=== PATIENT | female | born 1945 | race American Indian/Alaskan Native ===

== ENCOUNTER 2020-01-12 23:52 | Inpatient (IN) | payer MEDICAID, MEDICARE ==
[2020-01-13] MEDS ORDERED: NITROGLYCERIN 2% OINT 1 GM TP ONE (00:05)
[2020-01-13 00:32] LABS: Basophils % (Auto) 0.7 % (0.0-1.8); Eosinophils # (Auto) 0.2 K/mm3 (0.0-0.4); Eosinophils % (Auto) 2.6 % (0.0-4.3); Hematocrit 32.3 % (30.3-42.9); Hemoglobin 10.2 gm/dl (10.1-14.3); Lymphocytes # (Auto) 1.4 K/mm3 (1.2-5.4); Lymphocytes % (Auto) 23.1 % (13.4-35.0); Mean Corpuscular HGB Conc 32 % (30-34); Mean Corpuscular Volume 89 fl (79-97); Monocytes # (Auto) 0.5 K/mm3 (0.0-0.8); Monocytes % (Auto) 8.5 % (0.0-7.3); Platelet Count 245 K/mm3 (140-440); Red Blood Count 3.62 M/mm3 (3.65-5.03); Red Cell Distribution Width 20.3 % (13.2-15.2)
[2020-01-13 00:41] LABS: INR 1.45 (0.87-1.13)
[2020-01-13 00:42] LABS: Partial Thromboplastin Time 32.8 Sec. (24.2-36.6)
[2020-01-13 00:55] LABS: BUN/Creatinine Ratio 29; Blood Urea Nitrogen 40 mg/dL (7-17); Calcium 9.7 mg/dL (8.4-10.2); Hemolysis Index 4
--- NOTE | 2020-01-13 01:42 | Emergency Department Report ---
ED Shortness of Breath HPI - General Chief Complaint: Dyspnea/Respdistress Stated Complaint: SOB Time Seen by Provider: 01/13/20 00:04 Source: EMS Mode of arrival: Stretcher Limitations: No Limitations - History of Present Illness Initial Comments: Patient is a 74-year-old F [place] female with past medical history of congestive heart failure hypertension who is presenting with shortness of breath for the last 3 days. Patient does take Lasix at home. Patient was in respiratory distress and was placed on CPAP before arrival. She was given 40 mg of Lasix. She has a past medical history also of diabetes and hypertension. Patient denies fevers chills sore throat but has had a cough which is nonproductive and dry. Patient is denying any chest pain at this time. - Related Data Home Medications Medication Instructions Recorded Confirmed Last Taken Furosemide [Lasix TAB] 20 mg PO BID 03/03/18 03/04/18 03/03/18 Insulin NPH Hum/Reg Insulin Hm 20 units SUB-Q QPM 03/03/18 03/03/18 Unknown [Novolin 70-30 100 Unit/ml Vial] Insulin NPH Hum/Reg Insulin Hm 30 units SQ QAM 03/03/18 03/03/18 Unknown [Novolin 70-30 100 Unit/ml Vial] Klor-Con M20 1 tab PO BID 03/03/18 03/03/18 Unknown Metoprolol [Lopressor TAB] 100 mg PO BID 03/03/18 03/04/18 03/03/18 Valsartan [Diovan] 320 mg PO DAILY 03/03/18 03/04/18 03/03/18 Previous Rx's Medication Instructions Recorded Last Taken Type Apixaban [Eliquis] 5 mg PO BID #60 tablet 03/16/15 03/03/18 Rx Pantoprazole [Protonix TAB] 40 mg PO QDAY #14 tablet 03/05/18 Unknown Rx Allergies Allergy/AdvReac Type Severity Reaction Status Date / Time metformin Allergy Diarrhea Verified 03/03/18 15:10 codeine AdvReac Unknown Verified 03/13/15 23:27 ED Review of Systems ROS: Stated complaint: SOB Other details as noted in HPI Comment: All other systems reviewed and negative ED Past Medical Hx - Past Medical History Hx Hypertension: Yes Hx CVA: Yes (TIA) Hx Congestive Heart Failure: Yes Hx Diabetes: Yes Hx Seizures: Yes - Surgical History Additional Surgical History: 100 lb cyst removed-2005 - Social History Smoking Status: Unknown if ever smoked - Medications Home Medications: Home Medications Medication Instructions Recorded Confirmed Last Taken Type Apixaban [Eliquis] 5 mg PO BID #60 tablet 03/16/15 03/04/18 03/03/18 Rx Furosemide [Lasix TAB] 20 mg PO BID 03/03/18 03/04/18 03/03/18 History Insulin NPH Hum/Reg Insulin Hm 20 units SUB-Q QPM 03/03/18 03/03/18 Unknown History [Novolin 70-30 100 Unit/ml Vial] Insulin NPH Hum/Reg Insulin Hm 30 units SQ QAM 03/03/18 03/03/18 Unknown History [Novolin 70-30 100 Unit/ml Vial] Klor-Con M20 1 tab PO BID 03/03/18 03/03/18 Unknown History Metoprolol [Lopressor TAB] 100 mg PO BID 03/03/18 03/04/18 03/03/18 History Valsartan [Diovan] 320 mg PO DAILY 03/03/18 03/04/18 03/03/18 History Pantoprazole [Protonix TAB] 40 mg PO QDAY #14 tablet 03/05/18 Unknown Rx ED Physical Exam - General Limitations: No Limitations General appearance: alert, in distress - Head Head exam: Present: atraumatic, normocephalic - Eye Eye exam: Present: normal appearance - ENT ENT exam: Present: mucous membranes moist - Neck Neck exam: Present: normal inspection - Respiratory Respiratory exam: Present: respiratory distress, rales, rhonchi. Absent: normal lung sounds bilaterally, wheezes, stridor - Cardiovascular Cardiovascular Exam: Present: regular rate, normal rhythm, normal heart sounds. Absent: systolic murmur, diastolic murmur, rubs, gallop - GI/Abdominal GI/Abdominal exam: Present: soft, normal bowel sounds. Absent: distended, tenderness, guarding, rebound - Extremities Exam Extremities exam: Present: normal inspection - Back Exam Back exam: Present: normal inspection - Neurological Exam Neurological exam: Present: alert, oriented X3 - Psychiatric Psychiatric exam: Present: normal affect, normal mood - Skin Skin exam: Present: warm, dry, intact, normal color. Absent: rash ED Course Vital Signs 01/13/20 01/13/20 01/13/20 00:11 00:15 00:18 Temperature Pulse Rate 65 58 L Respiratory 15 35 H Rate Blood Pressure 150/81 150/71 O2 Sat by Pulse 95 100 100 Oximetry 01/13/20 01/13/20 01/13/20 00:19 00:31 00:45 Temperature 97.8 F Pulse Rate 65 56 L Respiratory 22 25 H Rate Blood Pressure 150/71 157/76 O2 Sat by Pulse 99 99 Oximetry 01/13/20 01/13/20 01/13/20 01:01 01:06 01:15 Temperature Pulse Rate 55 L 57 L Respiratory 32 H 20 27 H Rate Blood Pressure 174/91 166/85 O2 Sat by Pulse 99 100 Oximetry 01/13/20 01/13/20 01:31 01:45 Temperature Pulse Rate 56 L 54 L Respiratory 32 H 29 H Rate Blood Pressure 174/87 174/91 O2 Sat by Pulse 99 100 Oximetry ED Medical Decision Making - Lab Data Result diagrams: 01/13/20 00:13 01/13/20 00:13 Lab Results 01/13/20 01/13/20 01/13/20 Range/Units 00:13 00:13 00:13 WBC 6.2 (4.5-11.0) K/mm3 RBC 3.62 L (3.65-5.03) M/mm3 Hgb 10.2 (10.1-14.3) gm/dl Hct 32.3 (30.3-42.9) % MCV 89 (79-97) fl MCH 28 (28-32) pg MCHC 32 (30-34) % RDW 20.3 H (13.2-15.2) % Plt Count 245 (140-440) K/mm3 Lymph % (Auto) 23.1 (13.4-35.0) % [place] % (Auto) 8.5 H (0.0-7.3) % Eos % (Auto) 2.6 (0.0-4.3) % Baso % (Auto) 0.7 (0.0-1.8) % Lymph # (Auto) 1.4 (1.2-5.4) K/mm3 [place] # (Auto) 0.5 (0.0-0.8) K/mm3 Eos # (Auto) 0.2 (0.0-0.4) K/mm3 Baso # (Auto) 0.0 (0.0-0.1) K/mm3 Seg Neutrophils % 65.1 (40.0-70.0) % Seg Neutrophils # 4.0 (1.8-7.7) K/mm3 PT 17.8 H (12.2-14.9) Sec. INR 1.45 H (0.87-1.13) APTT 32.8 (24.2-36.6) Sec. Sodium 130 L (137-145) mmol/L Potassium 4.0 (3.6-5.0) mmol/L Chloride 93.0 L (98-107) mmol/L Carbon Dioxide 21 L (22-30) mmol/L Anion Gap 20 mmol/L BUN 40 H (7-17) mg/dL Creatinine 1.4 H (0.6-1.2) mg/dL Estimated GFR 44 ml/min BUN/Creatinine Ratio 29 % Glucose 175 H (65-100) mg/dL Calcium 9.7 (8.4-10.2) mg/dL Troponin T < 0.010 (0.00-0.029) ng/mL NT-Pro-B Natriuret Pep 1899 H (0-900) pg/mL - EKG Data -: EKG Interpreted by Mn - Radiology Data Chest x-ray shows cardiomegaly with pulmonary vascular congestion and pulmonary edema - Medical Decision Making Patient is improving dramatically on BiPAP. She received 40 Lasix prior to arrival. She is starting to diurese. Patient will be admitted to the hospitalist service. Critical Care Time: Yes (30) Critical care attestation.: If time is entered above; I have spent that time in minutes in the direct care of this critically ill patient, excluding procedure time. ED Disposition Clinical Impression: CHF (congestive heart failure), Hypertension, SOB (shortness of breath) Disposition: OP ADMIT IP TO THIS HOSP Is pt being admited?: Yes Does the pt Need Aspirin: No Condition: Stable Instructions: Hypertension (ED) Referrals: PRIMARY CARE, [Primary Care Provider] - 3-5 Days Time of Disposition: 02:05
--- NOTE | 2020-01-13 01:49 | XRay Report ---
CHEST 1 VIEW INDICATION: resp distress. COMPARISON: 03/03/2018. FINDINGS: Support devices: None. Heart: Mildly enlarged, unchanged. Lungs/Pleura: There are small effusions with mild bibasilar opacities. IMPRESSION: 1. Cardiomegaly with mild bibasilar pleuroparenchymal disease. Signer Name: Mike Guillen MD Signed: 01/13/2020 1:44 AM Workstation Name: [id number]
[2020-01-13] MEDS ORDERED: MAGNESIUM HYDROXIDE (MOM) ORAL LIQD UDC PO PRN (02:23)
[2020-01-13] MEDS ORDERED: DEXTROSE 50% IN WATER (25GM) 50 ML SYRINGE IV PRN (02:23)
--- NOTE | 2020-01-13 02:40 | History and Physical Report ---
History of Present Illness Date of examination: 01/13/20 Date of admission: 01/13/20 02:05 Chief complaint: Shortness of Breath History of present illness: 74-year-old female with known history of CHF ejection fraction of 50 to 55% in 2015, hypertension, diabetes mellitus, history of CVA, and seizure disorder presented to the emergency room today complaining of shortness of breath which has been ongoing for the past 3 days. She denies any fever or chills, no nausea vomiting, no chest pain, she had some mild cough which is nonproductive, no headache or dizziness. Patient was brought in by EMS and en route to the hospital was found to be in respiratory distress and therefore placed on CPAP. She was given some IV furosemide. Work-up in the emergency room reveals elevated BNP, chest x-ray was consistent with pulmonary edema. Patient was still in respiratory distress and therefore placed on BiPAP. She has been admitted for evaluation of her CHF. Past History Past Medical History: diabetes, heart failure, hypertension, seizures, stroke Past Surgical History: Other (Cyst removal in 2005) Social history: no significant social history Family history: no significant family history Medications and Allergies Allergies Allergy/AdvReac Type Severity Reaction Status Date / Time metformin Allergy Diarrhea Verified 03/03/18 15:10 codeine AdvReac Unknown Verified 03/13/15 23:27 Home Medications Medication Instructions Recorded Confirmed Last Taken Type Apixaban [Eliquis] 5 mg PO BID #60 tablet 03/16/15 03/04/18 03/03/18 Rx Furosemide [Lasix TAB] 20 mg PO BID 03/03/18 03/04/18 03/03/18 History Insulin NPH Hum/Reg Insulin Hm 20 units SUB-Q QPM 03/03/18 03/03/18 Unknown History [Novolin 70-30 100 Unit/ml Vial] Insulin NPH Hum/Reg Insulin Hm 30 units SQ QAM 03/03/18 03/03/18 Unknown History [Novolin 70-30 100 Unit/ml Vial] Klor-Con M20 1 tab PO BID 03/03/18 03/03/18 Unknown History Metoprolol [Lopressor TAB] 100 mg PO BID 03/03/18 03/04/18 03/03/18 History Valsartan [Diovan] 320 mg PO DAILY 03/03/18 03/04/18 03/03/18 History Pantoprazole [Protonix TAB] 40 mg PO QDAY #14 tablet 03/05/18 Unknown Rx Active Meds: Active Medications Acetaminophen (Tylenol) 650 mg PO Q6H PRN PRN Reason: Pain MILD(1-3)/Fever >100.5/SUNG Dextrose (D50w (25gm) Syringe) 50 ml IV Q30MIN PRN; Protocol PRN Reason: Hypoglycemia Furosemide (Lasix) 40 mg IV BID@0600,1800 SHERRON Insulin Human Lispro (Humalog) 0 unit SUB-Q ACHS SHERRON; Protocol Magnesium Hydroxide (Milk Of Magnesia) 30 ml PO Q4H PRN PRN Reason: Constipation Sodium Chloride (Sodium Chloride Flush Syringe 10 Ml) 10 ml IV BID SHERRON Sodium Chloride (Sodium Chloride Flush Syringe 10 Ml) 10 ml IV PRN PRN PRN Reason: LINE FLUSH Review of Systems Constitutional: no fever, no chills Ears, nose, mouth and throat: no nasal congestion, no sore throat Cardiovascular: no chest pain, no palpitations Respiratory: shortness of breath, no cough Gastrointestinal: no abdominal pain, no nausea, no vomiting, no diarrhea Genitourinary Female: no pelvic pain, no flank pain, no dysuria Musculoskeletal: no neck pain, no low back pain Integumentary: no rash, no pruritis Neurological: no headaches, no confusion Psychiatric: no anxiety, no depression Exam - Constitutional Vitals: Temp Pulse Resp BP Pulse Ox 97.8 F 54 L 29 H 174/91 100 01/13/20 00:19 01/13/20 01:45 01/13/20 01:45 01/13/20 01:45 01/13/20 01:45 General appearance: Present: no acute distress, mild distress, well-nourished - EENT Eyes: Present: PERRL, EOM intact. Absent: scleral icterus ENT: hearing intact, clear oral mucosa, dentition normal - Neck Neck: Present: supple, normal ROM - Respiratory Respiratory effort: normal Respiratory: bilateral: rales - Cardiovascular Rhythm: regular Heart Sounds: Present: S1 & S2. Absent: systolic murmur, diastolic murmur, rub - Extremities Extremities: no ischemia, pulses intact, Full ROM Extremity abnormal: edema (Trace bilateral ankle edema) Peripheral Pulses: within normal limits - Abdominal General gastrointestinal: Present: soft, non-tender, non-distended, normal bowel sounds. Absent: mass - Integumentary Integumentary: Present: clear, warm, dry. Absent: rash - Musculoskeletal Musculoskeletal: strength equal bilaterally - Psychiatric Psychiatric: appropriate mood/affect, intact judgment & insight, memory intact, cooperative - Neurologic Neurologic: CNII-XII intact, no focal deficits, moves all extremities HEART Score - HEART Score Troponin: Troponin T < 0.010 ng/mL (0.00-0.029) 01/13/20 00:13 Results - Labs CBC & Chem 7: 01/13/20 00:13 01/13/20 00:13 Labs: Abnormal lab results 01/13/20 01/13/20 01/13/20 Range/Units 00:13 00:13 00:13 RBC 3.62 L (3.65-5.03) M/mm3 RDW 20.3 H (13.2-15.2) % [place] % (Auto) 8.5 H (0.0-7.3) % PT 17.8 H (12.2-14.9) Sec. INR 1.45 H (0.87-1.13) Sodium 130 L (137-145) mmol/L Chloride 93.0 L (98-107) mmol/L Carbon Dioxide 21 L (22-30) mmol/L BUN 40 H (7-17) mg/dL Creatinine 1.4 H (0.6-1.2) mg/dL Glucose 175 H (65-100) mg/dL NT-Pro-B Natriuret Pep 1899 H (0-900) pg/mL Assessment and Plan - Patient Problems (1) CHF (congestive heart failure) Current Visit: Yes Status: Chronic Qualifiers: Plan to address problem: Patient admitted and placed on diuretics. Will monitor inputs and output and also monitor daily weight We will schedule patient for echocardiogram. (2) Diabetes mellitus Current Visit: Yes Status: Acute Plan to address problem: We will monitor Accu-Cheks. (3) DVT prophylaxis Current Visit: No Status: Acute Plan to address problem: Patient placed on subcutaneous heparin. (4) Full code status Current Visit: Yes Status: Acute
[2020-01-13] MEDS ORDERED: FUROSEMIDE 40 MG/4 ML INJ ONE (09:39)
[2020-01-13] MEDS: FUROSEMIDE 40 MG/4 ML INJ IV SCH ×2 (09:48→17:56)
--- NOTE | 2020-01-13 10:05 | Event Note ---
Date: 01/13/20 Patient was admitted earlier this morning for the management of CHF exacerbation. Patient states shortness of breath is getting better. Cardiology consult appreciated. Continue management as outlined in HPI. Vital signs, labs and imagings were reviewed.
[2020-01-13] MEDS: INSULIN LISPRO 100 UNIT/ML VIAL 3 mL SUB-Q SCH ×4 (11:25→22:47)
[2020-01-13] MEDS ORDERED: ACETAMINOPHEN 325 MG TAB ONE (14:28)
[2020-01-13] MEDS: ACETAMINOPHEN 325 MG TAB PO PRN (14:32)
--- NOTE | 2020-01-13 14:44 | Consultation ---
HISTORY OF PRESENT ILLNESS: The patient is a 74-year-old female with a past history of congestive heart failure and hypertension, who presented with shortness of breath of 3 days' duration. The patient is a very poor historian. She states compliance with medicines. She states her blood pressure has been okay. She does not monitor her weight. She states that her daughter knows the details. Her ejection fraction has been preserved in the past. She also has diabetes, history of stroke, history of seizures. Chest x-ray was felt to be consistent with congestive heart failure. ALLERGIES: METFORMIN AND CODEINE. MEDICATIONS: See the nurse's list. SOCIAL HISTORY: Smoking: None. Alcohol: No heavy use. FAMILY HISTORY: Noncontributory. PREVIOUS SURGERIES: Cyst removal. REVIEW OF SYSTEMS: She gives a vague description of chest pain to me, although the medical record does not describe any chest pain. She is disoriented. She did not have any other complaints or medical problems. PHYSICAL EXAMINATION: GENERAL: Well-developed, moderately obese, in mild respiratory distress. The patient is confused, but cooperative. EYES, NOSE, AND THROAT: Unremarkable. NECK: Reveals JVD. There are no bruits. Neck is supple, no masses. LUNGS: Mild rhonchi, mildly labored respirations. HEART: Irregular rhythm, grade 3 systolic murmur. ABDOMEN: Soft, nontender, no masses. Bowel sounds intact. EXTREMITIES: No cyanosis, clubbing, edema. Peripheral pulses are intact, but diminished. NEUROLOGIC: Deferred. IMAGING: EKG shows atrial fibrillation, bradycardia with a heart rate of 50, nonspecific ST-T changes. IMPRESSION: 1. Recurrence of diastolic congestive heart failure. 2. Hypertension that is not under control at this time. 3. Obesity. 4. Diabetes. 5. History of stroke with disorientation. 6. Systolic murmur, consider underlying mitral regurgitation. 7. Chronic kidney disease. 8. Hyponatremia. 9. Evidence of PAD on exam. 10. Atrial fibrillation. PLAN: Treat for congestive heart failure and hypertension. Check previous workup. Echo to reevaluate LV function and valve status. Thank you for this consultation. We will follow the patient. JOB# [id number] JDS/NTS
[2020-01-14 05:18] LABS: Basophils % (Auto) 0.7 % (0.0-1.8); Eosinophils # (Auto) 0.1 K/mm3 (0.0-0.4); Eosinophils % (Auto) 2.1 % (0.0-4.3); Hematocrit 30.7 % (30.3-42.9); Hemoglobin 9.7 gm/dl (10.1-14.3); Lymphocytes # (Auto) 1.1 K/mm3 (1.2-5.4); Mean Corpuscular HGB Conc 32 % (30-34); Mean Corpuscular Volume 90 fl (79-97); Monocytes # (Auto) 0.7 K/mm3 (0.0-0.8); Monocytes % (Auto) 12.5 % (0.0-7.3); Platelet Count 235 K/mm3 (140-440); Red Blood Count 3.43 M/mm3 (3.65-5.03)
[2020-01-14 05:27] LABS: INR 1.44 (0.87-1.13)
[2020-01-14 05:34] LABS: Red Cell Distribution Width 20.1 % (13.2-15.2)
[2020-01-14 05:36] LABS: Calcium 9.8 mg/dL (8.4-10.2)
[2020-01-14] MEDS: FUROSEMIDE 40 MG/4 ML INJ IV SCH ×2 (05:37→17:02)
[2020-01-14] MEDS: INSULIN LISPRO 100 UNIT/ML VIAL 3 mL SUB-Q SCH ×4 (11:39→22:50)
--- NOTE | 2020-01-14 12:48 | Progress Note ---
Assessment and Plan - Patient Problems (1) CHF (congestive heart failure) Current Visit: Yes Status: Chronic Qualifiers: (2) Hypertension Current Visit: Yes Status: Chronic Qualifiers: (3) CHF (congestive heart failure) Current Visit: No Status: Acute Qualifiers: Heart failure type: unspecified Heart failure chronicity: chronic Qualified Code(s): I50.9 - Heart failure, unspecified Subjective Date of service: 01/14/20 Interval history: FEELS BETTER Objective Vital Signs Temp Pulse Resp BP Pulse Ox 01/14/20 11:56 98.4 F 68 20 114/63 98 01/14/20 09:33 96 01/14/20 08:41 98.5 F 76 20 140/70 94 01/14/20 04:01 97.6 F 57 L 20 102/56 100 01/14/20 02:48 28 H 98 01/14/20 00:43 24 97 01/14/20 00:02 97.5 F L 69 22 135/46 99 01/13/20 23:19 97 01/13/20 22:00 67 01/13/20 21:43 97.5 F L 66 26 H 160/83 100 01/13/20 21:01 67 27 H 165/75 100 01/13/20 20:51 67 22 165/75 100 01/13/20 20:41 68 26 H 165/75 99 01/13/20 20:33 67 19 165/75 96 01/13/20 20:31 64 28 H 165/75 96 01/13/20 20:01 65 29 H 165/75 96 01/13/20 19:31 72 14 165/75 96 01/13/20 19:01 66 21 138/60 93 01/13/20 18:31 71 16 138/60 93 01/13/20 18:01 71 28 H 138/60 95 01/13/20 17:31 69 20 122/78 96 01/13/20 17:00 73 28 H 126/81 95 01/13/20 16:31 71 18 122/78 96 01/13/20 16:01 69 15 122/78 95 01/13/20 15:32 22 01/13/20 15:31 62 17 155/101 97 01/13/20 15:01 73 26 H 129/53 96 01/13/20 14:32 16 01/13/20 14:31 71 21 129/53 96 01/13/20 14:01 72 33 H 129/53 94 01/13/20 13:31 62 27 H 152/132 94 01/13/20 13:01 69 11 L 126/54 - Physical Examination General: No Apparent Distress HEENT: Positive: PERRL Neck: Positive: neck supple Cardiac: Positive: Regular Rhythm Lungs: Positive: clear to auscultation Abdomen: Positive: Unremarkable Extremities: Present: edema (NO,,,,DIM PULSES) - Labs and Meds Coagulation 01/14/20 Range/Units 04:45 PT 17.7 H (12.2-14.9) Sec. INR 1.44 H (0.87-1.13) CBC 01/14/20 Range/Units 04:45 WBC 6.0 (4.5-11.0) K/mm3 RBC 3.43 L (3.65-5.03) M/mm3 Hgb 9.7 L (10.1-14.3) gm/dl Hct 30.7 (30.3-42.9) % Plt Count 235 (140-440) K/mm3 Lymph # (Auto) 1.1 L (1.2-5.4) K/mm3 [place] # (Auto) 0.7 (0.0-0.8) K/mm3 Eos # (Auto) 0.1 (0.0-0.4) K/mm3 Baso # (Auto) 0.0 (0.0-0.1) K/mm3 Comprehensive Metabolic Panel 01/14/20 Range/Units 04:45 Sodium 132 L (137-145) mmol/L Potassium 4.0 (3.6-5.0) mmol/L Chloride 95.3 L (98-107) mmol/L Carbon Dioxide 27 (22-30) mmol/L BUN 42 H (7-17) mg/dL Creatinine 1.3 H (0.6-1.2) mg/dL Glucose 106 H (65-100) mg/dL Calcium 9.8 (8.4-10.2) mg/dL
--- NOTE | 2020-01-14 14:39 | Progress Note ---
Assessment and Plan - Patient Problems (1) Seizure disorder Current Visit: Yes Status: Acute Plan to address problem: At present no active seizure continue present medical management. (2) Diabetes mellitus Current Visit: Yes Status: Acute Plan to address problem: At present fair control patient is not on any medications blood sugars have been normal to low. Would not add any hypoglycemics and to blood sugars titrate up. (3) CHF (congestive heart failure) Current Visit: Yes Status: Chronic Qualifiers: Plan to address problem: Patient CHF exacerbation. Ejection fraction 55%. Patient has had significant improvement since hospital stay. Breathing better continue current diuresis. (4) Hypertension Current Visit: Yes Status: Chronic Qualifiers: Plan to address problem: At present blood pressure normal to low without any medications. Will titrate a ccordingly. Reintroduce beta-tariq. Will avoid GUY secondary to chronic kidney disease stage IV. Subjective Date of service: 01/14/20 Principal diagnosis: Congestive heart failure exacerbation. Interval history: 74-year-old female with known history of CHF ejection fraction of 50 to 55% in 2015, hypertension, diabetes mellitus, history of CVA, and seizure disorder presented to the emergency room today complaining of shortness of breath which has been ongoing for the past 3 days. She denies any fever or chills, no nausea vomiting, no chest pain, she had some mild cough which is nonproductive, no headache or dizziness. Patient today states she just does not feel good. She thinks it may be secondary to her shortness of breath and fatigue. States she is able to sit up side of the bed and lay flat sometimes since receiving diuresis.. She said that that is better for her. Objective - Constitutional Vitals: Vital Signs - 12hr 01/14/20 01/14/20 01/14/20 02:48 04:01 08:41 Temperature 97.6 F 98.5 F Pulse Rate 57 L 76 Respiratory 28 H 20 20 Rate Blood Pressure 102/56 140/70 O2 Sat by Pulse 98 100 94 Oximetry 01/14/20 01/14/20 09:33 11:56 Temperature 98.4 F Pulse Rate 68 Respiratory 20 Rate Blood Pressure 114/63 O2 Sat by Pulse 96 98 Oximetry General appearance: Present: mild distress - EENT Eyes: PERRL, EOM intact ENT: hearing intact, clear oral mucosa - Neck Neck: supple, normal ROM - Respiratory Respiratory: bilateral: diminished, rales, negative: wheezing (Diffuse.) - Breasts Breasts: normal - Cardiovascular Heart Sounds: Present: S1 & S2. Absent: gallop, rub Extremities: pulses intact, No edema, normal color, Full ROM - Gastrointestinal General gastrointestinal: Present: soft, non-tender, non-distended, normal bowel sounds - Musculoskeletal Musculoskeletal: 1, strength equal bilaterally - Neurologic Neurologic: moves all extremities - Psychiatric Psychiatric: memory intact, appropriate mood/affect, intact judgment & insight - Labs CBC & Chem 7: 01/14/20 04:45 01/14/20 04:45 Labs: Abnormal lab results 01/14/20 01/14/20 01/14/20 Range/Units 04:45 04:45 04:45 RBC 3.43 L (3.65-5.03) M/mm3 Hgb 9.7 L (10.1-14.3) gm/dl RDW 20.1 H (13.2-15.2) % [place] % (Auto) 12.5 H (0.0-7.3) % Lymph # (Auto) 1.1 L (1.2-5.4) K/mm3 PT 17.7 H (12.2-14.9) Sec. INR 1.44 H (0.87-1.13) Sodium 132 L (137-145) mmol/L Chloride 95.3 L (98-107) mmol/L BUN 42 H (7-17) mg/dL Creatinine 1.3 H (0.6-1.2) mg/dL Glucose 106 H (65-100) mg/dL POC Glucose (70-105) 01/14/20 01/14/20 Range/Units 11:11 11:47 RBC (3.65-5.03) M/mm3 Hgb (10.1-14.3) gm/dl RDW (13.2-15.2) % [place] % (Auto) (0.0-7.3) % Lymph # (Auto) (1.2-5.4) K/mm3 PT (12.2-14.9) Sec. INR (0.87-1.13) Sodium (137-145) mmol/L Chloride (98-107) mmol/L BUN (7-17) mg/dL Creatinine (0.6-1.2) mg/dL Glucose (65-100) mg/dL POC Glucose 170 H 158 H (70-105) HEART Score - HEART Score Troponin: Troponin T < 0.010 ng/mL (0.00-0.029) 01/13/20 03:38
[2020-01-14] MEDS: ACETAMINOPHEN 325 MG TAB PO PRN (15:22)
[2020-01-14] MEDS: SIMETHICONE 80 MG CHEW TAB PO PRN (15:34)
[2020-01-14] MEDS ORDERED: METOPROLOL TARTRATE 25 MG TAB PO ONE (16:09)
[2020-01-15] MEDS: FUROSEMIDE 40 MG/4 ML INJ IV SCH ×2 (06:42→17:11)
[2020-01-15] MEDS: INSULIN LISPRO 100 UNIT/ML VIAL 3 mL SUB-Q SCH ×4 (09:19→22:50)
--- NOTE | 2020-01-15 10:25 | Progress Note ---
Assessment and Plan Diastolic heart failure normal EF and no ischemia by MPI 02/2018 Chronic shortness of breath Chronic atrial fibrillation, rate control Metoprolol 100mg BID held due to slow ventricular rate on Eliquis for anticoagulation as an outpatient Diabetes Hypertension Recommendations: Fluid restriction. Continue medical therapy for heart failure with a preserved ejection fraction. Resume anticoagulation for CVA prophylaxis. Subjective Date of service: 01/15/20 Principal diagnosis: Congestive heart failure exacerbation. Interval history: Patient is sitting up in bed and reports her breathing is better. Atrial fibrillation with a well controlled ventricular rate on telemetry. Objective Vital Signs Temp Pulse Pulse Pulse Resp BP Pulse Ox 01/15/20 09:01 96 01/15/20 07:35 98.3 F 85 20 134/81 96 01/15/20 07:00 84 84 18 97 01/15/20 05:23 97.8 F 80 20 125/49 99 01/14/20 22:00 59 L 01/14/20 21:00 68 01/14/20 20:12 96 01/14/20 19:31 97.8 F 68 20 149/68 97 01/14/20 19:00 68 68 18 97 01/14/20 16:55 68 163/80 01/14/20 15:49 163/80 01/14/20 11:56 98.4 F 68 20 114/63 98 01/14/20 11:30 85 - Physical Examination General: No Apparent Distress HEENT: Positive: PERRL Neck: Positive: neck supple Cardiac: Positive: irregularly irregular Lungs: Positive: Decreased Breath Sounds Neuro: Positive: Grossly Intact Extremities: Absent: edema
[2020-01-15] MEDS: APIXABAN 5 MG TAB PO SCH ×2 (13:14→22:50)
[2020-01-15] MEDS: SIMETHICONE 80 MG CHEW TAB PO PRN ×2 (16:26→22:50)
--- NOTE | 2020-01-15 17:13 | Progress Note ---
Assessment and Plan - Patient Problems (1) Seizure disorder Current Visit: Yes Status: Acute Plan to address problem: No present seizure activities. No medications noted.. (2) Diabetes mellitus Current Visit: Yes Status: Acute Plan to address problem: At present fair control patient is not on any medications blood sugars have been normal to low. Would not add any hypoglycemics and to blood sugars titrate up. Blood sugars remain stable. (3) CHF (congestive heart failure) Current Visit: Yes Status: Chronic Qualifiers: Plan to address problem: Patient CHF exacerbation. Ejection fraction 55%. Patient has had significant improvement since hospital stay. Breathing better continue current diuresis. Continue medical management and diureses. Should be able to discharge 1 to 2 days. (4) Hypertension Current Visit: Yes Status: Chronic Qualifiers: Plan to address problem: At present blood pressure normal to low without any medications. Will titrate accordingly. Reintroduce beta-tariq. Will avoid GUY secondary to chronic kidney disease stage IV. (5) Morbid obesity Current Visit: Yes Status: Acute Plan to address problem: Decrease caloric intake. Increase activity. May be a candidate for sleep study. (6) Atrial fibrillation Current Visit: No Status: Chronic Qualifiers: Atrial fibrillation type: chronic Plan to address problem: Patient rate well controlled. Metoprolol decreased secondary to bradycardia. Heart rate stable at 76 now. Subjective Date of service: 01/15/20 Principal diagnosis: Congestive heart failure exacerbation. Interval history: 74-year-old female with known history of CHF ejection fraction of 50 to 55% in 2015, hypertension, diabetes mellitus, history of CVA, and seizure disorder presented to the emergency room today complaining of shortness of breath which has been ongoing for the past 3 days. She denies any fever or chills, no nausea vomiting, no chest pain, she had some mild cough which is nonproductive, no headache or dizziness. Patient today states she just does not feel good. She thinks it may be secondary to her shortness of breath and fatigue. States she is able to sit up side of the bed and lay flat sometimes since receiving diuresis.. Patient improved significantly today. However patient still has persistent tachypnea and unable to lie flat secondary to dyspnea. Overall clinically patient has improved since yesterday. Most likely discharge in 1 to 2 days. Objective - Constitutional Vitals: Vital Signs - 12hr 01/15/20 01/15/20 01/15/20 05:23 07:00 07:35 Temperature 97.8 F 98.3 F Pulse Rate 80 85 Pulse Rate [ 84 Left Radial] Pulse Rate [ 84 Right Radial] Respiratory 20 18 20 Rate Blood Pressure 125/49 134/81 O2 Sat by Pulse 99 97 96 Oximetry 01/15/20 01/15/20 09:01 11:30 Temperature Pulse Rate 74 Pulse Rate [ Left Radial] Pulse Rate [ Right Radial] Respiratory Rate Blood Pressure O2 Sat by Pulse 96 Oximetry General appearance: Present: no acute distress, well-nourished - EENT Eyes: PERRL, EOM intact ENT: hearing intact, clear oral mucosa Ears: bilateral: normal - Neck Neck: supple, normal ROM - Respiratory Respiratory effort: normal Respiratory: bilateral: CTA, rhonchi - Breasts Breasts: normal - Cardiovascular Rhythm: regular Heart Sounds: Present: S1 & S2. Absent: gallop, rub Extremities: pulses intact, No edema, normal color, Full ROM Extremity abnormal: edema, other (Improving lower extremity edema.) - Gastrointestinal General gastrointestinal: Present: soft, non-tender, non-distended, normal bowel sounds - Genitourinary Female genitourinary: normal - Integumentary Integumentary: clear, warm, dry - Musculoskeletal Musculoskeletal: strength equal bilaterally, other (Improved exercise tolerance.) - Neurologic Neurologic: moves all extremities - Psychiatric Psychiatric: memory intact, appropriate mood/affect, intact judgment & insight - Labs CBC & Chem 7: 01/14/20 04:45 01/14/20 04:45 Labs: Abnormal lab results 01/14/20 01/15/20 01/15/20 Range/Units 21:19 07:57 13:11 POC Glucose 122 H 112 H 126 H (70-105) 01/15/20 Range/Units 17:08 POC Glucose 159 H (70-105) HEART Score - HEART Score Troponin: Troponin T < 0.010 ng/mL (0.00-0.029) 01/13/20 03:38
[2020-01-15] MEDS: METOPROLOL TARTRATE 25 MG TAB PO SCH (22:50)
[2020-01-16] MEDS: FUROSEMIDE 40 MG/4 ML INJ IV SCH (06:25)
[2020-01-16] MEDS: INSULIN LISPRO 100 UNIT/ML VIAL 3 mL SUB-Q SCH ×2 (08:20→12:18)
[2020-01-16 09:08] VITALS: BP 110/82
[2020-01-16] MEDS: APIXABAN 5 MG TAB PO SCH (09:18)
[2020-01-16] MEDS: METOPROLOL TARTRATE 25 MG TAB PO SCH (09:19)
--- NOTE | 2020-01-16 09:21 | Progress Note ---
Assessment and Plan Diastolic heart failure normal EF and no ischemia by MPI 02/2018 Chronic shortness of breath Chronic atrial fibrillation, rate control Metoprolol reduced to 25 mg BID due to slow ventricular rate on presentation on [facility] for anticoagulation as an outpatient Diabetes Hypertension Recommendations: Dietary restriction. Continue medical therapy for heart failure with a preserved ejection fraction and chronic atrial fibrillation. Otherwise, conservative cardiac management. Patient will follow up in our office within 5-7 days. Subjective Date of service: 01/16/20 Principal diagnosis: Congestive heart failure exacerbation. Interval history: Patient is resting comfortably and reports her breathing is better. Atrial fibrillation with a well controlled ventricular rate on telemetry. Objective Vital Signs Temp Pulse Pulse Pulse Resp BP Pulse Ox 01/16/20 08:29 78 78 18 97 01/16/20 07:26 98.2 F 71 18 110/82 98 01/16/20 03:13 77 16 129/76 96 01/15/20 22:55 98.4 F 84 18 166/81 97 01/15/20 22:50 92 H 150/60 01/15/20 22:00 84 70 70 18 100 01/15/20 19:03 99.6 F 70 16 150/60 95 01/15/20 15:58 97.7 F 90 20 141/80 97 01/15/20 11:30 74 - Physical Examination General: No Apparent Distress HEENT: Positive: PERRL Neck: Positive: neck supple Cardiac: Positive: irregularly irregular Lungs: Positive: Decreased Breath Sounds Neuro: Positive: Grossly Intact Extremities: Absent: edema
--- NOTE | 2020-01-16 11:40 | Discharge Summary ---
Providers - Providers Date of Admission: 01/15/20 10:58 Date of discharge: 01/16/20 Attending physician: AQUILINO DYKES 01/13/20 02:24 Consult to Dietitian/Nutrition [CONS] Routine Physician Instructions: Reason For Exam: Reason for Consult: Diet education Consult to Dietitian/Nutrition [CONS] Routine Physician Instructions: Reason For Exam: Reason for Consult: Diet education 01/13/20 08:17 Consult to Physician [CONS] Routine Comment: Consulting Provider: ERICK MILLS Physician Instructions: Reason For Exam: CHF EXAC Primary care physician: [employer] Hospitalization Reason for admission: CHF Condition: Stable Hospital course: 74-year-old female with known history of CHF ejection fraction of 50 to 55% in 2015, hypertension, diabetes mellitus, history of CVA, and seizure disorder presented to the emergency room complaining of shortness of 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 Patient was brought in by EMS and en route to the hospital was found to be in respiratory distress and therefore placed on CPAP. Work-up in the emergency room reveals elevated BNP, chest x-ray was consistent with pulmonary edema. Patient was still in respiratory distress and therefore placed on BiPAP. The patient was admitted with diagnosis of acute hypoxic respiratory failure, chronic atrial fibrillation and acute on chronic diastolic heart failure. The patient was seen by cardiology in consultation who recommended continued medical therapy for heart failure and conservative cardiac management. Patient was treated with metoprolol which was later decreased to 25 mg twice daily due to slow ventricular rate on presentation patient was treated with Eliquis for anticoagulation as an outpatient. Patient eventually stabilized and was felt to have received maximal hospital benefit for discharge. Dedicated discharge time 35 minutes. Disposition: DC- TO HOME OR SELFCARE Time spent for discharge: 35 - Discharge Diagnoses (1) Acute respiratory failure with hypoxia Status: Acute (2) Acute on chronic diastolic (congestive) heart failure Status: Acute (3) Diabetes mellitus Status: Acute (4) Morbid obesity Status: Acute (5) Seizure disorder Status: Acute (6) Hypertension Status: Chronic Qualifiers: (7) Atrial fibrillation with rapid ventricular response Status: Acute Core Measure Documentation - Palliative Care Palliative Care/ Comfort Measures: Not Applicable - Core Measures Any of the following diagnoses?: none Exam - Constitutional Vitals: Temp Pulse Resp BP Pulse Ox 98.2 F 70 18 110/82 97 01/16/20 07:26 01/16/20 09:19 01/16/20 08:29 01/16/20 09:19 01/16/20 08:29 General appearance: Present: no acute distress, well-nourished - EENT Eyes: Present: PERRL ENT: hearing intact, clear oral mucosa - Neck Neck: Present: supple, normal ROM - Respiratory Respiratory effort: normal Respiratory: bilateral: CTA - Cardiovascular Heart Sounds: Present: S1 & S2. Absent: rub, click - Extremities Extremities: pulses symmetrical, No edema Peripheral Pulses: within normal limits - Abdominal General gastrointestinal: Present: soft, non-tender, non-distended, normal bowel sounds Female genitourinary: Present: normal - Integumentary Integumentary: Present: clear, warm, dry - Musculoskeletal Musculoskeletal: gait normal, strength equal bilaterally - Psychiatric Psychiatric: appropriate mood/affect, intact judgment & insight - Neurologic Neurologic: CNII-XII intact, moves all extremities Plan Activity: advance as tolerated Weight Bearing Status: Weight Bear as Tolerated Diet: low salt Follow up with: PRIMARY MD SHANIQUA [Primary Care Provider] - 3-5 Days DESIREE QUINONEZ MD [Staff Physician] - 7 Days Prescriptions: Apixaban [Eliquis] 5 mg PO Q12HR #60 tablet Furosemide [Lasix TAB] 20 mg PO BID #60 Metoprolol [Lopressor TAB] 25 mg PO BID #60 tablet Losartan/Hydrochlorothiazide [Losartan-Hctz 100-25 mg Tab] 1 each PO DAILY #30 allopurinoL [Zyloprim] 300 mg PO QDAY #30
== END 2020-01-16 15:32 | disposition home or self-care (01) | DRG 189 ==
LOC: ED 23:52 → IMCU 01-13 02:05 → 4A 01-13 19:59 → OBSVTOIN 01-15 10:58
PROVIDERS: ADMIT Internal Medicine Geriatric Medicine; ATTEND Hospitalist
PROC: 5A09357 Assistance with Respiratory Ventilation, Less than 24 Consecutive Hours, Continuous Positive Airway Pressure (ICD-10-PCS; 2020-01-13)
PROC: 5A09357 Assistance with Respiratory Ventilation, Less than 24 Consecutive Hours, Continuous Positive Airway Pressure (ICD-10-PCS; principal; 2020-01-14)
DX: J96.01 Acute respiratory failure with hypoxia (principal); I11.0 Hypertensive heart disease with heart failure; I50.33 Acute on chronic diastolic (congestive) heart failure; E11.9 Type 2 diabetes mellitus without complications; G40.909 Epilepsy, unspecified, not intractable, without status epilepticus; I48.20 Chronic atrial fibrillation, unspecified; E66.01 Morbid (severe) obesity due to excess calories; Z68.41 Body mass index [BMI] 40.0-44.9, adult; Z79.4 Long term (current) use of insulin; Z79.01 Long term (current) use of anticoagulants; Z79.899 Other long term (current) drug therapy; Z88.8 Allergy status to other drugs, medicaments and biological substances; Z88.5 Allergy status to narcotic agent; Z86.73 Personal history of transient ischemic attack (TIA), and cerebral infarction without residual deficits
CPT/HCPCS: 36415; 71045; 80048; 82962; 83735; 83880; 84484; 85025; 85610; 85730; 93005; 93306; 94660; 94760; 96374; G0378; J1940

== ENCOUNTER 2020-01-22 07:19 | Emergency (ER) | payer MEDICARE ==
[2020-01-22] MEDS ORDERED: ONDANSETRON 4 MG/2 ML INJ IV ONE (07:45)
[2020-01-22] MEDS ORDERED: FAMOTIDINE 20 MG/2 ML INJ IV ONE (07:45)
[2020-01-22] MEDS ORDERED: MORPHINE 4 MG/1 ML INJ IV ONE (07:45)
--- NOTE | 2020-01-22 07:49 | Emergency Department Report ---
ED Abdominal Pain HPI - General Chief Complaint: Dyspnea/Respdistress Stated Complaint: CHEST PAIN Time Seen by Provider: 01/22/20 07:29 Source: EMS, old records reviewed Mode of arrival: Stretcher Limitations: No Limitations - History of Present Illness Initial Comments: 74-year-old female with a past medical history of diastolic heart failure with a 01/13/2020 EF of 60-65, chronic atrial fibrillation currently on Eliquis, and diabetes presents to the hospital with complaints of "chest pain". Patient complains of a throbbing pain across her chest that is now constant. Pain has been going on for several days. Patient recently admitted here and discharged on the 01/12-01/15 for heart failure. Patient states she had pain and shortness of breath at that time. Symptoms did not improve and worsened in the last several days. Patient is compliant with her medications. Upon examination appears to the patient as she has epigastric and right upper quadrant abdominal pain to palpation. Previous surgical history of a "100 pound cyst removal" patient denies nausea, vomiting, fever, or diarrhea. As per medical record patient had a negative treadmill stress test on February 2018 Patient reports her allergy to codeine is nausea and denies anaphylaxis - Related Data Previous Rx's Medication Instructions Recorded Last Taken Type Apixaban [Eliquis] 5 mg PO BID #60 tablet 03/16/15 03/03/18 Rx Apixaban [Eliquis] 5 mg PO Q12HR #60 tablet 01/16/20 Unknown Rx Furosemide [Lasix TAB] 20 mg PO BID #60 01/16/20 Unknown Rx Losartan/Hydrochlorothiazide 1 each PO DAILY #30 01/16/20 Unknown Rx [Losartan-Hctz 100-25 mg Tab] Metoprolol [Lopressor TAB] 25 mg PO BID #60 tablet 01/16/20 Unknown Rx allopurinoL [Zyloprim] 300 mg PO QDAY #30 01/16/20 Unknown Rx Famotidine [Pepcid] 20 mg PO BID #20 tablet 01/22/20 Unknown Rx Ondansetron [Zofran Odt] 4 mg PO Q8HR PRN #20 tab.rapdis 01/22/20 Unknown Rx traMADoL [Ultram 50 MG tab] 50 mg PO Q6HR PRN #20 tablet 01/22/20 Unknown Rx Allergies Allergy/AdvReac Type Severity Reaction Status Date / Time apple Allergy Swelling Verified 01/13/20 11:27 metformin Allergy Diarrhea Verified 03/03/18 15:10 codeine AdvReac Unknown Verified 03/13/15 23:27 ED Review of Systems ROS: Stated complaint: CHEST PAIN Other details as noted in HPI Comment: All other systems reviewed and negative ED Past Medical Hx - Past Medical History Previous Medical History?: Yes Hx Hypertension: Yes Hx CVA: Yes (TIA) Hx Congestive Heart Failure: Yes Hx Diabetes: Yes Hx Seizures: Yes - Surgical History Past Surgical History?: Yes Additional Surgical History: 100 lb cyst removed-2005 - Social History Smoking Status: Never Smoker Substance Use Type: None - Medications Home Medications: Home Medications Medication Instructions Recorded Confirmed Last Taken Type Apixaban [Eliquis] 5 mg PO BID #60 tablet 03/16/15 01/22/20 03/03/18 Rx Apixaban [Eliquis] 5 mg PO Q12HR #60 tablet 01/16/20 01/22/20 Unknown Rx Furosemide [Lasix TAB] 20 mg PO BID #60 01/16/20 01/22/20 Unknown Rx Losartan/Hydrochlorothiazide 1 each PO DAILY #30 01/16/20 01/22/20 Unknown Rx [Losartan-Hctz 100-25 mg Tab] Metoprolol [Lopressor TAB] 25 mg PO BID #60 tablet 01/16/20 01/22/20 Unknown Rx allopurinoL [Zyloprim] 300 mg PO QDAY #30 01/16/20 01/22/20 Unknown Rx Famotidine [Pepcid] 20 mg PO BID #20 tablet 01/22/20 Unknown Rx Ondansetron [Zofran Odt] 4 mg PO Q8HR PRN #20 tab.rapdis 01/22/20 Unknown Rx traMADoL [Ultram 50 MG tab] 50 mg PO Q6HR PRN #20 tablet 01/22/20 Unknown Rx ED Physical Exam - General Limitations: No Limitations - Other Other exam information: General: No acute distress Head: Atraumatic Eyes: normal appearance ENT: Moist mucous membranes Neck: Normal appearance, no midline tenderness Chest: Clear to auscultation bilaterally CV: Regular rate and rhythm Abdomen: Soft, normal bowel sounds, midline vertical surgical scar down entire anterior abdomen epigastric tenderness right upper quadrant tenderness, nondistended, no rebound or guarding Back: Normal inspection Extremity: Normal inspection, full range of motion, no edema Neuro: Alert O x 3, no facial asymmetry, speech clear, no gross motor sensory deficit Psych: Appropriate behavior Skin: No rash ED Course Vital Signs 01/22/20 01/22/20 01/22/20 07:21 07:28 07:30 Temperature 97.9 F Pulse Rate 86 74 83 Respiratory 18 13 27 H Rate Blood Pressure 150/79 150/79 Blood Pressure [Left] O2 Sat by Pulse 97 Oximetry 01/22/20 01/22/20 01/22/20 07:45 07:57 08:01 Temperature Pulse Rate 74 82 75 Respiratory 24 19 26 H Rate Blood Pressure 150/79 145/81 Blood Pressure 150/79 [Left] O2 Sat by Pulse 98 83 L 94 Oximetry 01/22/20 01/22/20 01/22/20 08:15 08:45 09:00 Temperature Pulse Rate 88 92 H 81 Respiratory 24 21 23 Rate Blood Pressure 145/81 145/81 147/72 Blood Pressure [Left] O2 Sat by Pulse 92 88 Oximetry 01/22/20 01/22/20 01/22/20 09:15 09:31 09:45 Temperature Pulse Rate 79 74 71 Respiratory 16 21 19 Rate Blood Pressure 147/72 122/74 122/74 Blood Pressure [Left] O2 Sat by Pulse 97 93 98 Oximetry 01/22/20 01/22/20 01/22/20 10:01 10:15 10:31 Temperature Pulse Rate 77 76 78 Respiratory 22 21 20 Rate Blood Pressure 134/80 134/80 116/65 Blood Pressure [Left] O2 Sat by Pulse 96 98 97 Oximetry 01/22/20 01/22/20 01/22/20 10:45 11:01 11:15 Temperature Pulse Rate 66 74 74 Respiratory 23 21 23 Rate Blood Pressure 116/65 126/72 126/72 Blood Pressure [Left] O2 Sat by Pulse 99 96 97 Oximetry 01/22/20 01/22/20 01/22/20 11:31 11:45 12:00 Temperature Pulse Rate 74 75 75 Respiratory 23 24 21 Rate Blood Pressure 125/69 125/69 114/78 Blood Pressure [Left] O2 Sat by Pulse 95 99 98 Oximetry 01/22/20 01/22/20 01/22/20 12:15 12:30 12:45 Temperature Pulse Rate 68 77 74 Respiratory 19 26 H 23 Rate Blood Pressure 125/69 127/85 127/85 Blood Pressure [Left] O2 Sat by Pulse 99 97 99 Oximetry 01/22/20 01/22/20 01/22/20 13:00 13:15 13:30 Temperature Pulse Rate 80 76 86 Respiratory 22 24 22 Rate Blood Pressure 133/80 133/80 133/81 Blood Pressure [Left] O2 Sat by Pulse 97 99 96 Oximetry 01/22/20 01/22/20 01/22/20 13:45 14:00 14:11 Temperature Pulse Rate 82 70 88 Respiratory 19 19 20 Rate Blood Pressure 133/81 120/75 Blood Pressure 120/75 [Left] O2 Sat by Pulse 96 92 98 Oximetry ED Medical Decision Making - Lab Data Result diagrams: 01/22/20 07:56 01/22/20 07:56 Lab Results 01/22/20 01/22/20 01/22/20 Range/Units 07:56 07:56 07:56 WBC 5.3 (4.5-11.0) K/mm3 RBC 3.39 L (3.65-5.03) M/mm3 Hgb 9.8 L (10.1-14.3) gm/dl Hct 29.9 L (30.3-42.9) % MCV 88 (79-97) fl MCH 29 (28-32) pg MCHC 33 (30-34) % RDW 20.5 H (13.2-15.2) % Plt Count 233 (140-440) K/mm3 Lymph % (Auto) 23.1 (13.4-35.0) % [place] % (Auto) 11.8 H (0.0-7.3) % Eos % (Auto) 2.6 (0.0-4.3) % Baso % (Auto) 1.4 (0.0-1.8) % Lymph # (Auto) 1.2 (1.2-5.4) K/mm3 [place] # (Auto) 0.6 (0.0-0.8) K/mm3 Eos # (Auto) 0.1 (0.0-0.4) K/mm3 Baso # (Auto) 0.1 (0.0-0.1) K/mm3 Seg Neutrophils % 61.1 (40.0-70.0) % Seg Neutrophils # 3.3 (1.8-7.7) K/mm3 PT 17.1 H (12.2-14.9) Sec. INR 1.36 H (0.87-1.13) APTT 31.9 (24.2-36.6) Sec. Sodium 136 L (137-145) mmol/L Potassium 4.7 (3.6-5.0) mmol/L Chloride 97.7 L (98-107) mmol/L Carbon Dioxide 25 (22-30) mmol/L Anion Gap 18 mmol/L BUN 36 H (7-17) mg/dL Creatinine 1.3 H (0.6-1.2) mg/dL Estimated GFR 48 ml/min BUN/Creatinine Ratio 28 % Glucose 104 H (65-100) mg/dL Calcium 10.0 (8.4-10.2) mg/dL Total Bilirubin 0.60 (0.1-1.2) mg/dL AST 31 (5-40) units/L ALT 33 (7-56) units/L Alkaline Phosphatase 117 (35-129) units/L Troponin T (0.00-0.029) ng/mL NT-Pro-B Natriuret Pep (0-900) pg/mL Total Protein 8.1 (6.3-8.2) g/dL Albumin 3.5 L (3.9-5) g/dL Albumin/Globulin Ratio 0.8 % Lipase (13-60) units/L Urine Color (Yellow) Urine Turbidity (Clear) Urine pH (5.0-7.0) Ur Specific [place] (1.003-1.030) Urine Protein (Negative) mg/dL Urine Glucose (UA) (Negative) mg/dL Urine Ketones (Negative) mg/dL Urine Blood (Negative) Urine Nitrite (Negative) Urine Bilirubin (Negative) Urine Urobilinogen (<2.0) mg/dL Ur Leukocyte Esterase (Negative) Urine WBC (Auto) (0.0-6.0) /HPF Urine RBC (Auto) (0.0-6.0) /HPF U Epithel Cells (Auto) (0-13.0) /HPF Urine Bacteria (Auto) (Negative) /HPF Urine Mucus /HPF 01/22/20 01/22/20 01/22/20 Range/Units 07:56 10:51 Unknown WBC (4.5-11.0) K/mm3 RBC (3.65-5.03) M/mm3 Hgb (10.1-14.3) gm/dl Hct (30.3-42.9) % MCV (79-97) fl MCH (28-32) pg MCHC (30-34) % RDW (13.2-15.2) % Plt Count (140-440) K/mm3 Lymph % (Auto) (13.4-35.0) % [place] % (Auto) (0.0-7.3) % Eos % (Auto) (0.0-4.3) % Baso % (Auto) (0.0-1.8) % Lymph # (Auto) (1.2-5.4) K/mm3 [place] # (Auto) (0.0-0.8) K/mm3 Eos # (Auto) (0.0-0.4) K/mm3 Baso # (Auto) (0.0-0.1) K/mm3 Seg Neutrophils % (40.0-70.0) % Seg Neutrophils # (1.8-7.7) K/mm3 PT (12.2-14.9) Sec. INR (0.87-1.13) APTT (24.2-36.6) Sec. Sodium (137-145) mmol/L Potassium (3.6-5.0) mmol/L Chloride (98-107) mmol/L Carbon Dioxide (22-30) mmol/L Anion Gap mmol/L BUN (7-17) mg/dL Creatinine (0.6-1.2) mg/dL Estimated GFR ml/min BUN/Creatinine Ratio % Glucose (65-100) mg/dL Calcium (8.4-10.2) mg/dL Total Bilirubin (0.1-1.2) mg/dL AST (5-40) units/L ALT (7-56) units/L Alkaline Phosphatase (35-129) units/L Troponin T 0.011 < 0.010 (0.00-0.029) ng/mL NT-Pro-B Natriuret Pep 1921 H (0-900) pg/mL Total Protein (6.3-8.2) g/dL Albumin (3.9-5) g/dL Albumin/Globulin Ratio % Lipase 37 (13-60) units/L Urine Color Yellow (Yellow) Urine Turbidity Clear (Clear) Urine pH 5.0 (5.0-7.0) Ur Specific [place] 1.026 (1.003-1.030) Urine Protein 100 mg/dl (Negative) mg/dL Urine Glucose (UA) Neg (Negative) mg/dL Urine Ketones Neg (Negative) mg/dL Urine Blood Sm (Negative) Urine Nitrite Neg (Negative) Urine Bilirubin Neg (Negative) Urine Urobilinogen < 2.0 (<2.0) mg/dL Ur Leukocyte Esterase Neg (Negative) Urine WBC (Auto) < 1.0 (0.0-6.0) /HPF Urine RBC (Auto) 1.0 (0.0-6.0) /HPF U Epithel Cells (Auto) < 1.0 (0-13.0) /HPF Urine Bacteria (Auto) 1+ (Negative) /HPF Urine Mucus Few /HPF - EKG Data -: EKG Interpreted by Me (afib) Rate: normal (74) - EKG Data When compared to previous EKG there are: no significant change - Radiology Data Radiology results: report reviewed CHEST 1 VIEW INDICATION / CLINICAL INFORMATION: Chest Pain,sob. COMPARISON: 01/13/2020 FINDINGS: SUPPORT DEVICES: None. HEART / MEDIASTINUM: Stable. LUNGS / PLEURA: Previously noted bibasilar opacities are similar. Persistent small bilateral pleural effusions. No pneumothorax. ADDITIONAL FINDINGS: No significant additional findings. IMPRESSION: 1. No significant interval change since 01/13/2020. CTA CHEST WITH CONTRAST INDICATION / CLINICAL INFORMATION: MAIN. Shortness of breath and chest pain. TECHNIQUE: Axial CT images were obtained through the chest after injection of IV contrast. 3 plane MIP and/or 3D reconstructions were produced. All CT scans at this location are performed using CT dose reduction for ALARA by means of automated exposure control. COMPARISON: None available. FINDINGS: PULMONARY ARTERIES: No pulmonary emboli. THORACIC AORTA: Mild atherosclerotic calcification without acute abnormality. HEART: 4 chamber cardiac enlargement noted. No significant straightening of interventricular septum. CORONARY ARTERIES: No significant calcification. MEDIASTINUM / ESME: No significant abnormality. PLEURA: Small right-sided pleural effusion. No pneumothorax. LUNGS: Bibasilar atelectasis noted. 4 mm noncalcified soft tissue density nodule in the periphery of the right upper lobe (series 2 image 39). ADDITIONAL FINDINGS: Soft tissue density left breast lesion measures 5.3 x 4.6 cm and needs correlation with mammography. Reflux of contrast material is noted into the IVC. UPPER ABDOMEN: Simple right renal cysts. No acute findings of the visualized upper abdomen. SKELETAL STRUCTURES: Moderate multilevel degenerative changes are noted of the spine. IMPRESSION: 1. No CT evidence for pulmonary embolism. 2. 5.3 x 4.6 cm soft tissue density left breast lesion needs correlation with mammography. 3. Small right pleural effusion and bibasilar atelectasis. CT ABDOMEN AND PELVIS WITH CONTRAST HISTORY: epigastric and upper abd pain COMPARISON: 01/14/2015 TECHNIQUE: Axial CT images were obtained through the abdomen and pelvis after 100 cc of Omnipaque 300 intravenously. Sagittal and coronal reformatted images. All CT scans at this location are performed using CT dose reduction for ALARA by means of automated exposure control. FINDINGS: CT ABDOMEN: Lung Bases: Mild cardiomegaly. Small layering right pleural effusion. Liver: Mild hepatic steatosis is suspected. No enlargement or focal lesion. Biliary: No calcified gallstones are appreciated. No wall thickening or abnormal biliary dilatation. Spleen: No significant abnormality. Unenlarged. Pancreas: No significant abnormality. Adrenals: No significant abnormality. Kidneys: No significant abnormality. Few scattered simple renal cysts are unchanged. Lymphatics: No lymphadenopathy. Vasculature: No significant abnormality. Bowel/Peritoneum: No evidence for bowel obstruction or focal inflammation. No obvious GI mass. The appendix is not confidently identified. There is small perihepatic ascites centered around the gallbladder fossa. No free air. CT PELVIS: : The bladder is moderately distended. 1 cm calcified uterine fibroid is noted in the fundus of the uterus. The adnexa are unremarkable. Osseous Structures: Mild osteopenia and degenerative changes in the spine. Additional Findings: None IMPRESSION: Mild cardiomegaly and small right pleural effusion. There is small perihepatic ascites of uncertain significance. Fluid is most pronounced around the gallbladder fossa. There is no obvious cholelithiasis or biliary dilatation. Correlate for biliary symptoms. Mild hepatic steatosis. Simple renal cysts. Small uterine fibroid. - Medical Decision Making Patient feeling better after initial dose of morphine provided in the ED. No allergic reaction noted. Patient had a work-up including CT angiogram chest and CT abdomen and pelvis. Patient is noted to have a small pleural effusion as well as bibasilar atelectasis and breast mass that will need further outpatient evaluation. Patient initially report chest pain with pain more in her abdomen with palpation. Pain and shortness of breath improved after morphine and Zofran. Patient patient troponin negative x2 in the ED had negative stress test in 2018. Patient be discharged with pain medication, H2 blockers pain is epigastric, and outpatient follow-up. As per respiratory therapist Patient had apparently had difficulty with inhalation part of the incentive spirometer suggesting poor lung compliance. Patient will be sent referred to outpatient pulmonology since she is not in respiratory distress, wheezing, hypoxic in the ED Critical Care Time: No Critical care attestation.: If time is entered above; I have spent that time in minutes in the direct care of this critically ill patient, excluding procedure time. ED Disposition Clinical Impression: Morbid obesity, Abdominal pain, Atelectasis, Left breast mass, Chest pain, CHF (congestive heart failure), Chronic atrial fibrillation, Chronic anticoagulation Disposition: DC-01 TO HOME OR SELFCARE Is pt being admited?: No Does the pt Need Aspirin: No Condition: Stable Instructions: Chest Pain (ED), How to Use an Incentive Spirometer (ED), Abdominal Pain (ED), Breast Mass (ED) Additional Instructions: Take the medication as prescribed. Follow-up with your doctor or doctor/clinic provided. Return if symptoms worsen as indicated by your discharge instructions. Take the pain medicine tramadol as needed. Nausea medication has also been provided in case this medication causes nausea. Take the Pepcid to decrease upper stomach pain and decrease acid production in your stomach. Your CAT scan had an incidental finding of a left breast soft tissue mass that would need further outpatient evaluation with a mammogram Prescriptions: Famotidine [Pepcid] 20 mg PO BID #20 tablet traMADoL [Ultram 50 MG tab] 50 mg PO Q6HR PRN #20 tablet PRN Reason: Pain Ondansetron [Zofran Odt] 4 mg PO Q8HR PRN #20 tab.rapdis PRN Reason: Nausea And Vomiting Referrals: COTY SARMIENTO MD [Staff Physician] - 3-5 Days (breast surgeon ) MIRELA MCGOVERN MD [Primary Care Provider] - 3-5 Days THAD CRANDALL MD [Staff Physician] - 3-5 Days (Lung doctor) Time of Disposition: 14:08
[2020-01-22 08:08] LABS: Basophils # (Auto) 0.1 K/mm3 (0.0-0.1); Basophils % (Auto) 1.4 % (0.0-1.8); Eosinophils # (Auto) 0.1 K/mm3 (0.0-0.4); Eosinophils % (Auto) 2.6 % (0.0-4.3); Hematocrit 29.9 % (30.3-42.9); Hemoglobin 9.8 gm/dl (10.1-14.3); Lymphocytes # (Auto) 1.2 K/mm3 (1.2-5.4); Lymphocytes % (Auto) 23.1 % (13.4-35.0); Mean Corpuscular HGB Conc 33 % (30-34); Mean Corpuscular Volume 88 fl (79-97); Monocytes # (Auto) 0.6 K/mm3 (0.0-0.8); Monocytes % (Auto) 11.8 % (0.0-7.3); Platelet Count 233 K/mm3 (140-440); Red Blood Count 3.39 M/mm3 (3.65-5.03)
[2020-01-22 08:11] LABS: Red Cell Distribution Width 20.5 % (13.2-15.2)
[2020-01-22 08:21] LABS: INR 1.36 (0.87-1.13)
[2020-01-22 08:22] LABS: Partial Thromboplastin Time 31.9 Sec. (24.2-36.6)
[2020-01-22 08:33] LABS: Albumin 3.5 g/dL (3.9-5)
--- NOTE | 2020-01-22 08:35 | XRay Report ---
CHEST 1 VIEW INDICATION / CLINICAL INFORMATION: Chest Pain,sob. COMPARISON: 01/13/2020 FINDINGS: SUPPORT DEVICES: None. HEART / MEDIASTINUM: Stable. LUNGS / PLEURA: Previously noted bibasilar opacities are similar. Persistent small bilateral pleural effusions. No pneumothorax. ADDITIONAL FINDINGS: No significant additional findings. IMPRESSION: 1. No significant interval change since 01/13/2020. Signer Name: Mesfin Schumacher MD Signed: 01/22/2020 8:30 AM Workstation Name: [id number]
--- NOTE | 2020-01-22 09:29 | Cat Scan Report ---
CTA CHEST WITH CONTRAST INDICATION / CLINICAL INFORMATION: MAIN. Shortness of breath and chest pain. TECHNIQUE: Axial CT images were obtained through the chest after injection of IV contrast. 3 plane MIP and/or 3D reconstructions were produced. All CT scans at this location are performed using CT dose reduction f or ALARA by means of automated exposure control. COMPARISON: None available. FINDINGS: PULMONARY ARTERIES: No pulmonary emboli. THORACIC AORTA: Mild atherosclerotic calcification without acute abnormality. HEART: 4 chamber cardiac enlargement noted. No significant straightening of interventricular septum. CORONARY ARTERIES: No significant calcification. MEDIASTINUM / ESME: No significant abnormality. PLEURA: Small right-sided pleural effusion. No pneumothorax. LUNGS: Bibasilar atelectasis noted. 4 mm noncalcified soft tissue density nodule in the periphery of the right upper lobe (series 2 image 39). ADDITIONAL FINDINGS: Soft tissue density left breast lesion measures 5.3 x 4.6 cm and needs correlati on with mammography. Reflux of contrast material is noted into the IVC. UPPER ABDOMEN: Simple right renal cysts. No acute findings of the visualized upper abdomen. SKELETAL STRUCTURES: Moderate multilevel degenerative changes are noted of the spine. IMPRESSION: 1. No CT evidence for pulmonary embolism. 2. 5.3 x 4.6 cm soft tissue density left breast lesion needs correlation with mammography. 3. Small right pleural effusion and bibasilar atelectasis. Signer Name: Mesfin Schumacher MD Signed: 01/22/2020 9:25 AM Workstation Name: [id number]
--- NOTE | 2020-01-22 09:32 | Cat Scan Report ---
CT ABDOMEN AND PELVIS WITH CONTRAST HISTORY: epigastric and upper abd pain COMPARISON: 01/14/2015 TECHNIQUE: Axial CT images were obtained through the abdomen and pelvis after 100 cc of Omnipaque 300 intravenously. Sagittal and coronal reformatted images. All CT scans at this location are performed using CT dose reduction for ALARA by means of automated exposure control. FINDINGS: CT ABDOMEN: Lung Bases: Mild cardiomegaly. Small layering right pleural effusion. Liver: Mild hepatic steatosis is suspected. No enlargement or focal lesion. Biliary: No calcified gallstones are appreciated. No wall thickening or abnormal biliary dilatation. Spleen: No significant abnormality. Unenlarged. Pancreas: No significant abnormality. Adrenals: No significant abnormality. Kidneys: No significant abnormality. Few scattered simple renal cysts are unchanged. Lymphatics: No lymphadenopathy. Vasculature: No significant abnormality. Bowel/Peritoneum: No evidence for bowel obstruction or focal inflammation. No obvious GI mass. The ap pendix is not confidently identified. There is small perihepatic ascites centered around the gallblad lucas fossa. No free air. CT PELVIS: : The bladder is moderately distended. 1 cm calcified uterine fibroid is noted in the fundus of the uterus. The adnexa are unremarkable. Osseous Structures: Mild osteopenia and degenerative changes in the spine. Additional Findings: None IMPRESSION: Mild cardiomegaly and small right pleural effusion. There is small perihepatic ascites of uncertain significance. Fluid is most pronounced around the gal lbladder fossa. There is no obvious cholelithiasis or biliary dilatation. Correlate for biliary sympt oms. Mild hepatic steatosis. Simple renal cysts. Small uterine fibroid. Signer Name: Ramirez Blackburn Jr, MD Signed: 01/22/2020 9:28 AM Workstation Name: [id number]
[2020-01-22 13:48] LABS: Bacteria,Urine 1+ /HPF (Negative); Bilirubin,Urine NEG (Negative); Blood,Urine SM (Negative); Color,Urine Yellow (Yellow); Mucus,Urine FEW /HPF; Urobilinogen,Urine < 2.0 mg/dL (<2.0); WBC,Urine < 1.0 /HPF (0.0-6.0)
[2020-01-22 14:10] VITALS: BP 120/75
== END 2020-01-22 15:25 | disposition home or self-care (01) ==
LOC: ED 07:19
DX: I11.0 Hypertensive heart disease with heart failure (principal); I50.33 Acute on chronic diastolic (congestive) heart failure; I48.20 Chronic atrial fibrillation, unspecified; N63.20 Unspecified lump in the left breast, unspecified quadrant; R07.9 Chest pain, unspecified; J98.11 Atelectasis; J96.01 Acute respiratory failure with hypoxia; E66.01 Morbid (severe) obesity due to excess calories; E11.9 Type 2 diabetes mellitus without complications; Z86.73 Personal history of transient ischemic attack (TIA), and cerebral infarction without residual deficits; Z86.69 Personal history of other diseases of the nervous system and sense organs; Z98.890 Other specified postprocedural states; Z88.6 Allergy status to analgesic agent; Z79.899 Other long term (current) drug therapy; Z91.018 Allergy to other foods; Z79.01 Long term (current) use of anticoagulants
CPT/HCPCS: 36415; 71045; 71275; 74177; 80053; 81001; 83690; 83880; 84484; 85025; 85610; 85730; 93005; 96374; 96375; 99285; J2270; J2405; Q9967

== ENCOUNTER 2020-01-28 15:21 | Inpatient (IN) | payer MEDICARE, MEDICAID ==
[2020-01-28 16:17] LABS: Hemoglobin 9.9 gm/dl (10.1-14.3); Mean Corpuscular HGB Conc 33 % (30-34); Mean Corpuscular Volume 86 fl (79-97); Platelet Count 282 K/mm3 (140-440); Red Blood Count 3.48 M/mm3 (3.65-5.03); Red Cell Distribution Width 20.1 % (13.2-15.2)
--- NOTE | 2020-01-28 16:29 | XRay Report ---
XR chest 1V ap INDICATION / CLINICAL INFORMATION: Dyspnea. COMPARISON: 01/22/2020 FINDINGS: SUPPORT DEVICES: None. HEART / MEDIASTINUM: Prominent but unchanged. LUNGS / PLEURA: There are bilateral pleural effusions with blunting of the costophrenic sulci. Hazy o pacity lower lung zones is most consistent with layering effusions. No pneumothorax. ADDITIONAL FINDINGS: No significant additional findings. IMPRESSION: 1. Cardiomegaly with moderate bilateral pleural effusions. Signer Name: Garrison Bray MD Signed: 01/28/2020 4:24 PM Workstation Name: [id number]
[2020-01-28 16:35] LABS: INR 1.41 (0.87-1.13)
[2020-01-28 16:36] LABS: Partial Thromboplastin Time 33.5 Sec. (24.2-36.6)
[2020-01-28 16:41] LABS: Creatine Kinase MB 5.4 ng/mL (0.0-4.0)
[2020-01-28 16:42] LABS: BUN/Creatinine Ratio 26; Blood Urea Nitrogen 41 mg/dL (7-17); Calcium 10.2 mg/dL (8.4-10.2); Hemolysis Index 297
--- NOTE | 2020-01-28 16:55 | Emergency Department Report ---
ED Shortness of Breath HPI - General Chief Complaint: Dyspnea/Respdistress Stated Complaint: JON Time Seen by Provider: 01/28/20 15:48 Source: patient, EMS Mode of arrival: Stretcher Limitations: No Limitations - History of Present Illness Initial Comments: This is a 74-year-old female who comes to the emergency department complaining of shortness of breath at rest and on minimal exertion, as well as, symptoms of increasing abdominal girth. She she is a poor historian however she states she is on an anticoagulant. She has chronic atrial fibrillation. Review of her medication reconciliation indicates that she is prescribed Eliquis. She denies cough fever or chills. She states that she lives with her . She does not complain of abdominal pain nausea vomiting or change in her bowel or bladder function. She does not provide a history of chronic renal insufficiency. Review of her prior creatinine indicates that it was 1.3. The patient was recently discharged with acute respiratory failure and hypoxia her primary admitting diagnosis, this is secondary to acute on chronic heart failure. She has a history of diabetes and morbid obesity. I did review her previous CT reports that demonstrated changes consistent with congestive heart failure on a CT angiogram that was negative for pulmonary embolism. In addition, the patient was found to have some ascites on abdominal pelvic CT but no other significant findings. 01/22 Hospitalization: Reason for admission: CHF Condition: Stable Hospital course: 74-year-old female with known history of CHF ejection fraction of 50 to 55% in 2014, hypertension, diabetes mellitus, history of CVA, and seizure disorder presented to the emergency room complaining of shortness of breath which was ongoing for the past 3 days [employer]. Patient was brought in by EMS and en route to the hospital was found to be in respiratory distress and therefore placed on CPAP. Work-up in the emergency room reveals elevated BNP, chest x-ray was consistent with pulmonary edema. Patient was still in respiratory distress and therefore placed on BiPAP. The patient was admitted with diagnosis of acute hypoxic respiratory failure, chronic atrial fibrillation and acute on chronic diastolic heart failure. The patient was seen by cardiology in consultation who recommended continued medical therapy for heart failure and conservative cardiac management. Patient was treated with metoprolol which was later decreased to 25 mg twice daily due to slow ventricular rate on presentation patient was treated with Eliquis for anticoagulation as an outpatient. Patient eventually stabilized and was felt to have received maximal hospital benefit for discharge. Dedicated discharge time 35 minutes. Disposition: [id number] TO HOME OR SELFCARE Time spent for discharge: 35 - Discharge Diagnoses (1) Acute respiratory failure with hypoxia Status: Acute (2) Acute on chronic diastolic (congestive) heart failure Status: Acute (3) Diabetes mellitus Status: Acute (4) Morbid obesity Status: Acute (5) Seizure disorder Status: Acute (6) Hypertension Status: Chronic Qualifiers: (7) Atrial fibrillation with rapid ventricular response Status: Acute MD Complaint: shortness of breath -: Gradual, days(s) Severity: moderate Consistency: constant Improves With: nothing Worsens With: lying flat Context: other (Cardiomyopathy) Associated Symptoms: denies other symptoms - Related Data Previous Rx's Medication Instructions Recorded Last Taken Type Apixaban [Eliquis] 5 mg PO BID #60 tablet 03/16/15 03/03/18 Rx Apixaban [Eliquis] 5 mg PO Q12HR #60 tablet 01/16/20 Unknown Rx Furosemide [Lasix TAB] 20 mg PO BID #60 01/16/20 Unknown Rx Losartan/Hydrochlorothiazide 1 each PO DAILY #30 01/16/20 Unknown Rx [Losartan-Hctz 100-25 mg Tab] Metoprolol [Lopressor TAB] 25 mg PO BID #60 tablet 01/16/20 Unknown Rx allopurinoL [Zyloprim] 300 mg PO QDAY #30 01/16/20 Unknown Rx Famotidine [Pepcid] 20 mg PO BID #20 tablet 01/22/20 Unknown Rx Ondansetron [Zofran Odt] 4 mg PO Q8HR PRN #20 tab.rapdis 01/22/20 Unknown Rx traMADoL [Ultram 50 MG tab] 50 mg PO Q6HR PRN #20 tablet 01/22/20 Unknown Rx Allergies Allergy/AdvReac Type Severity Reaction Status Date / Time apple Allergy Swelling Verified 01/13/20 11:27 metformin Allergy Diarrhea Verified 03/03/18 15:10 codeine AdvReac Unknown Verified 03/13/15 23:27 ED Review of Systems ROS: Stated complaint: JON Other details as noted in HPI Constitutional: denies: chills, fever Eyes: denies: eye pain, eye discharge, vision change ENT: denies: ear pain, throat pain Respiratory: shortness of breath, SOB with exertion, SOB at rest. denies: cough, wheezing Cardiovascular: denies: chest pain, palpitations Endocrine: no symptoms reported Gastrointestinal: as per HPI (Increasing abdominal girth). denies: abdominal pain, nausea, diarrhea Genitourinary: denies: urgency, dysuria, discharge Musculoskeletal: denies: back pain, joint swelling, arthralgia Skin: denies: rash, lesions Neurological: denies: headache, weakness, paresthesias Psychiatric: denies: anxiety, depression Hematological/Lymphatic: denies: easy bleeding, easy bruising ED Past Medical Hx - Past Medical History Previous Medical History?: Yes Hx Hypertension: Yes Hx CVA: Yes (TIA) Hx Congestive Heart Failure: Yes Hx Diabetes: Yes Hx Seizures: Yes - Surgical History Past Surgical History?: Yes Additional Surgical History: 100 lb cyst removed-2005 - Social History Smoking Status: Never Smoker Substance Use Type: None - Medications Home Medications: Home Medications Medication Instructions Recorded Confirmed Last Taken Type Apixaban [Eliquis] 5 mg PO BID #60 tablet 03/16/15 01/22/20 03/03/18 Rx Apixaban [Eliquis] 5 mg PO Q12HR #60 tablet 01/16/20 01/22/20 Unknown Rx Furosemide [Lasix TAB] 20 mg PO BID #60 01/16/20 01/22/20 Unknown Rx Losartan/Hydrochlorothiazide 1 each PO DAILY #30 01/16/20 01/22/20 Unknown Rx [Losartan-Hctz 100-25 mg Tab] Metoprolol [Lopressor TAB] 25 mg PO BID #60 tablet 01/16/20 01/22/20 Unknown Rx allopurinoL [Zyloprim] 300 mg PO QDAY #30 01/16/20 01/22/20 Unknown Rx Famotidine [Pepcid] 20 mg PO BID #20 tablet 01/22/20 Unknown Rx Ondansetron [Zofran Odt] 4 mg PO Q8HR PRN #20 tab.rapdis 01/22/20 Unknown Rx traMADoL [Ultram 50 MG tab] 50 mg PO Q6HR PRN #20 tablet 01/22/20 Unknown Rx ED Physical Exam - General Limitations: Physical Limitation General appearance: alert, in no apparent distress, obese - Head Head exam: Present: atraumatic, normocephalic - Eye Eye exam: Present: normal appearance. Absent: scleral icterus - ENT ENT exam: Present: mucous membranes moist - Neck Neck exam: Present: normal inspection - Respiratory Respiratory exam: Present: normal lung sounds bilaterally, other. Absent: respiratory distress - Cardiovascular Cardiovascular Exam: Present: regular rate, irregular rhythm. Absent: systolic murmur, diastolic murmur, rubs, gallop - GI/Abdominal GI/Abdominal exam: Present: soft, distended, normal bowel sounds, other (Likely ascites). Absent: tenderness, guarding, rebound, rigid - Extremities Exam Extremities exam: Present: normal inspection. Absent: calf tenderness - Back Exam Back exam: Present: normal inspection - Neurological Exam Neurological exam: Present: alert, oriented X3, CN II-XII intact. Absent: motor sensory deficit - Psychiatric Psychiatric exam: Present: normal affect, normal mood - Skin Skin exam: Present: warm, dry, intact, normal color. Absent: rash ED Course Vital Signs 01/28/20 15:25 Temperature 98.4 F Pulse Rate 64 Respiratory 17 Rate Blood Pressure 157/68 O2 Sat by Pulse 94 Oximetry - Reevaluation(s) Reevaluation #1: Patient was found to be somewhat hyponatremic. Lab reported hyperkalemia with slight hemolysis. The patient's renal function has worsened from 1.3 to 1.6 creatinine. She is a bit more prerenal. This certainly does create some dilemmas in the treatment of her congestive heart failure. I am going to give her 1 dose of Lasix, 0.5 of Nitropaste and repeat her chemistries. Further care and evaluation will be per Dr. Ayon/hospitalist. 01/28/20 17:08 ED Medical Decision Making - Lab Data Result diagrams: 01/28/20 16:02 01/28/20 16:02 Laboratory Results - last 24 hr 01/28/20 01/28/20 01/28/20 16:02 16:02 16:02 WBC 5.7 RBC 3.48 L Hgb 9.9 L Hct 30.0 L MCV 86 MCH 29 MCHC 33 RDW 20.1 H Plt Count 282 PT 17.4 H INR 1.41 H APTT 33.5 Sodium 129 L Chloride 94.9 L Carbon Dioxide 24 Anion Gap 16 BUN 41 H Creatinine 1.6 H Estimated GFR 38 BUN/Creatinine Ratio 26 Glucose 142 H Calcium 10.2 Magnesium 2.00 CK-MB (CK-2) 5.4 H CK-MB (CK-2) Rel Index 2.0 Troponin T < 0.010 - EKG Data -: EKG Interpreted by Me Rate: normal - EKG Data Interpretation: nonspecific ST-T wave rosi, other (Atrial fibrillation) - Radiology Data Radiology results: report reviewed, image reviewed (Cardiomegaly, pleural effusion) Critical care attestation.: If time is entered above; I have spent that time in minutes in the direct care of this critically ill patient, excluding procedure time. ED Disposition Clinical Impression: Acute on chronic diastolic CHF (congestive heart failure), Hyponatremia, Hyperkalemia, Chronic anticoagulation, Chronic atrial fibrillation, Acute on chronic renal insufficiency Disposition: 09 OP ADMIT IP TO THIS HOSP Is pt being admited?: Yes Does the pt Need Aspirin: Yes Condition: Stable Time of Disposition: 17:12
[2020-01-28] MEDS ORDERED: FUROSEMIDE 40 MG/4 ML INJ IV ONE (16:57)
[2020-01-28] MEDS ORDERED: NITROGLYCERIN 2% OINT 1 GM TP ONE (17:01)
[2020-01-28] MEDS: ASPIRIN 325 MG TAB PO SCH (17:30)
[2020-01-28 17:33] LABS: Bacteria,Urine 1+ /HPF (Negative); Bilirubin,Urine NEG (Negative); Blood,Urine SM (Negative); Color,Urine Straw (Yellow); Urobilinogen,Urine < 2.0 mg/dL (<2.0)
[2020-01-28 17:46] LABS: Calcium 10.3 mg/dL (8.4-10.2)
[2020-01-28 19:00] LABS: Anisocytosis 1+; Band Neutrophils # (Manual) 0.1 K/mm3; Total Cells Counted 100
[2020-01-28 19:14] LABS: Crenated RBC Rare; Ovalocytes Rare
[2020-01-28 19:15] LABS: Platelet Estimate Consistent w Auto
[2020-01-29] MEDS ORDERED: ONDANSETRON 4 MG ODT TAB PO PRN (00:37)
[2020-01-29] MEDS ORDERED: traMADol 50 MG TAB PO PRN (00:37)
--- NOTE | 2020-01-29 00:37 | History and Physical Report ---
History of Present Illness Date of examination: 01/28/20 Date of admission: 01/28/20 18:25 Chief complaint: Increasing shortness of breath for 1 week History of present illness: 74-year-old female with history of congestive heart failure comes in for increasing shortness of breath and increasing abdominal girth. Patient has atrial fibrillation and is on Eliquis. She denies fever cough or chills. Lives with her . Patient has orthopnea and class IV NYHA symptoms. Ejection fraction was 0 to 55% in 2014. Patient also has diabetes. And seizure disor lucas and old CVA. Last admission from January 2020 was reviewed. Patient was admitted for acute respiratory failure and acute congestive heart failure. - Past Medical History Previous Medical History?: Yes --Hypertension: Yes --CVA: Yes (TIA) --Congestive Heart Failure: Yes --Diabetes: Yes -- Seizures: Yes - Surgical History Past Surgical History?: Yes Additional Surgical History: 100 lb cyst removed-2005 - Social History Smoking Status: Never Smoker Substance Use Type: None family history Htn - Medications Home Medications: Home Medications Medication Instructions Recorded Confirmed Last Taken Type Apixaban [Eliquis] 5 mg PO BID #60 tablet 03/16/15 01/22/20 03/03/18 Rx Apixaban [Eliquis] 5 mg PO Q12HR #60 tablet 01/16/20 01/22/20 Unknown Rx Furosemide [Lasix TAB] 20 mg PO BID #60 01/16/20 01/22/20 Unknown Rx Losartan/Hydrochlorothiazide 1 each PO DAILY #30 01/16/20 01/22/20 Unknown Rx [Losartan-Hctz 100-25 mg Tab] Metoprolol [Lopressor TAB] 25 mg PO BID #60 tablet 01/16/20 01/22/20 Unknown Rx allopurinoL [Zyloprim] 300 mg PO QDAY #30 01/16/20 01/22/20 Unknown Rx Famotidine [Pepcid] 20 mg PO BID #20 tablet 01/22/20 Unknown Rx Ondansetron [Zofran Odt] 4 mg PO Q8HR PRN #20 tab.rapdis 01/22/20 Unknown Rx traMADoL [Ultram 50 MG tab] 50 mg PO Q6HR PRN #20 tablet 01/22/20 Unknown Rx Review of Systems ROS: Stated complaint: JON Other details as noted in HPI Constitutional: denies: chills, fever Eyes: denies: eye pain, eye discharge, vision change ENT: denies: ear pain, throat pain Respiratory: shortness of breath, SOB with exertion, SOB at rest. denies: cough, wheezing Cardiovascular: denies: chest pain, palpitations Endocrine: no symptoms reported Gastrointestinal: as per HPI (Increasing abdominal girth). denies: abdominal pain, nausea, diarrhea Genitourinary: denies: urgency, dysuria, discharge Musculoskeletal: denies: back pain, joint swelling, arthralgia Skin: denies: rash, lesions Neurological: denies: headache, weakness, paresthesias Psychiatric: denies: anxiety, depression Hematological/Lymphatic: denies: easy bleeding, easy bruising Medications and Allergies Allergies Allergy/AdvReac Type Severity Reaction Status Date / Time apple Allergy Swelling Verified 01/13/20 11:27 metformin Allergy Diarrhea Verified 03/03/18 15:10 codeine AdvReac Unknown Verified 03/13/15 23:27 Home Medications Medication Instructions Recorded Confirmed Last Taken Type Apixaban [Eliquis] 5 mg PO BID #60 tablet 03/16/15 01/22/20 03/03/18 Rx Apixaban [Eliquis] 5 mg PO Q12HR #60 tablet 01/16/20 01/22/20 Unknown Rx Furosemide [Lasix TAB] 20 mg PO BID #60 01/16/20 01/22/20 Unknown Rx Losartan/Hydrochlorothiazide 1 each PO DAILY #30 01/16/20 01/22/20 Unknown Rx [Losartan-Hctz 100-25 mg Tab] Metoprolol [Lopressor TAB] 25 mg PO BID #60 tablet 01/16/20 01/22/20 Unknown Rx allopurinoL [Zyloprim] 300 mg PO QDAY #30 01/16/20 01/22/20 Unknown Rx Famotidine [Pepcid] 20 mg PO BID #20 tablet 01/22/20 Unknown Rx Ondansetron [Zofran Odt] 4 mg PO Q8HR PRN #20 tab.rapdis 01/22/20 Unknown Rx traMADoL [Ultram 50 MG tab] 50 mg PO Q6HR PRN #20 tablet 01/22/20 Unknown Rx Active Meds: Active Medications Aspirin (Aspirin) 325 mg PO QDAY SHERRON Last Admin: 01/28/20 17:30 Dose: 325 mg Documented by: Exam - Constitutional Vitals: Temp Pulse Resp BP Pulse Ox 98.4 F 64 19 154/72 96 01/28/20 15:25 01/28/20 19:01 01/28/20 19:01 01/28/20 19:01 01/28/20 19:01 General appearance: Present: no acute distress, well-nourished - EENT Eyes: Present: PERRL ENT: hearing intact, clear oral mucosa - Neck Neck: Present: supple, normal ROM - Respiratory Respiratory effort: normal Respiratory: bilateral: CTA - Cardiovascular Heart Sounds: Present: S1 & S2. Absent: rub, click - Extremities Extremities: pulses symmetrical, No edema Peripheral Pulses: within normal limits - Abdominal General gastrointestinal: Present: soft, non-tender, non-distended, normal bowel sounds Female genitourinary: Present: normal - Integumentary Integumentary: Present: clear, warm, dry - Musculoskeletal Musculoskeletal: gait normal, strength equal bilaterally - Psychiatric Psychiatric: appropriate mood/affect, intact judgment & insight - Neurologic Neurologic: CNII-XII intact, moves all extremities HEART Score - HEART Score Troponin: Troponin T < 0.010 ng/mL (0.00-0.029) 01/28/20 16:02 Results - Labs CBC & Chem 7: 01/28/20 16:02 01/28/20 17:18 Labs: Laboratory Last Values WBC 5.7 K/mm3 (4.5-11.0) 01/28/20 16:02 RBC 3.48 M/mm3 (3.65-5.03) L 01/28/20 16:02 Hgb 9.9 gm/dl (10.1-14.3) L 01/28/20 16:02 Hct 30.0 % (30.3-42.9) L 01/28/20 16:02 MCV 86 fl (79-97) 01/28/20 16:02 MCH 29 pg (28-32) 01/28/20 16:02 MCHC 33 % (30-34) 01/28/20 16:02 RDW 20.1 % (13.2-15.2) H 01/28/20 16:02 Plt Count 282 K/mm3 (140-440) 01/28/20 16:02 Add Manual Diff Complete 01/28/20 16:02 Total Counted 100 01/28/20 16:02 Seg Neuts % (Manual) 61.0 % (40.0-70.0) 01/28/20 16:02 Band Neutrophils % 1.0 % 01/28/20 16:02 Lymphocytes % (Manual) 26.0 % (13.4-35.0) 01/28/20 16:02 Reactive Lymphs % (Man) 0 % 01/28/20 16:02 Monocytes % (Manual) 9.0 % (0.0-7.3) H 01/28/20 16:02 Eosinophils % (Manual) 1.0 % (0.0-4.3) 01/28/20 16:02 Basophils % (Manual) 1.0 % (0.0-1.8) 01/28/20 16:02 Metamyelocytes % 1.0 % 01/28/20 16:02 Myelocytes % 0 % 01/28/20 16:02 Promyelocytes % 0 % 01/28/20 16:02 Blast Cells % 0 % 01/28/20 16:02 Nucleated RBC % Not Reportable 01/28/20 16:02 Seg Neutrophils # Man 3.5 K/mm3 (1.8-7.7) 01/28/20 16:02 Band Neutrophils # 0.1 K/mm3 01/28/20 16:02 Lymphocytes # (Manual) 1.5 K/mm3 (1.2-5.4) 01/28/20 16:02 Abs React Lymphs (Man) 0.0 K/mm3 01/28/20 16:02 Monocytes # (Manual) 0.5 K/mm3 (0.0-0.8) 01/28/20 16:02 Eosinophils # (Manual) 0.1 K/mm3 (0.0-0.4) 01/28/20 16:02 Basophils # (Manual) 0.1 K/mm3 (0.0-0.1) 01/28/20 16:02 Metamyelocytes # 0.1 K/mm3 01/28/20 16:02 Myelocytes # 0.0 K/mm3 01/28/20 16:02 Promyelocytes # 0.0 K/mm3 01/28/20 16:02 Blast Cells # 0.0 K/mm3 01/28/20 16:02 WBC Morphology Not Reportable 01/28/20 16:02 Hypersegmented Neuts Not Reportable 01/28/20 16:02 Hyposegmented Neuts Not Reportable 01/28/20 16:02 Hypogranular Neuts Not Reportable 01/28/20 16:02 Smudge Cells Not Reportable 01/28/20 16:02 Toxic Granulation Not Reportable 01/28/20 16:02 Toxic Vacuolation Not Reportable 01/28/20 16:02 Dohle Bodies Not Reportable 01/28/20 16:02 Pelger-Huet Anomaly Not Reportable 01/28/20 16:02 Eyal Rods Not Reportable 01/28/20 16:02 Platelet Estimate Consistent w auto 01/28/20 16:02 Clumped Platelets Not Reportable 01/28/20 16:02 Plt Clumps, EDTA Not Reportable 01/28/20 16:02 Large Platelets Not Reportable 01/28/20 16:02 Giant Platelets Not Reportable 01/28/20 16:02 Platelet Satelliting Not Reportable 01/28/20 16:02 Plt Morphology Comment Not Reportable 01/28/20 16:02 RBC Morphology Not Reportable 01/28/20 16:02 Dimorphic RBCs Not Reportable 01/28/20 16:02 Polychromasia Not Reportable 01/28/20 16:02 Hypochromasia Not Reportable 01/28/20 16:02 Poikilocytosis Not Reportable 01/28/20 16:02 Anisocytosis 1+ 01/28/20 16:02 Microcytosis Not Reportable 01/28/20 16:02 Macrocytosis Not Reportable 01/28/20 16:02 Spherocytes Not Reportable 01/28/20 16:02 Pappenheimer Bodies Not Reportable 01/28/20 16:02 Sickle Cells Not Reportable 01/28/20 16:02 Target Cells Not Reportable 01/28/20 16:02 Tear Drop Cells Not Reportable 01/28/20 16:02 Ovalocytes Rare 01/28/20 16:02 Helmet Cells Not Reportable 01/28/20 16:02 [place] Bodies Not Reportable 01/28/20 16:02 [place] Rings Not Reportable 01/28/20 16:02 [place] Cells Not Reportable 01/28/20 16:02 Bite Cells Not Reportable 01/28/20 16:02 Crenated Cell Rare 01/28/20 16:02 Elliptocytes Not Reportable 01/28/20 16:02 Acanthocytes (Spur) Not Reportable 01/28/20 16:02 Rouleaux Not Reportable 01/28/20 16:02 Hemoglobin C Crystals Not Reportable 01/28/20 16:02 Schistocytes Not Reportable 01/28/20 16:02 Malaria parasites Not Reportable 01/28/20 16:02 Michael Bodies Not Reportable 01/28/20 16:02 Hem Pathologist Commnt No 01/28/20 16:02 PT 17.4 Sec. (12.2-14.9) H 01/28/20 16:02 INR 1.41 (0.87-1.13) H 01/28/20 16:02 APTT 33.5 Sec. (24.2-36.6) 01/28/20 16:02 Sodium 132 mmol/L (137-145) L 01/28/20 17:18 Potassium 4.6 mmol/L (3.6-5.0) D 01/28/20 17:18 Chloride 95.9 mmol/L (98-107) L 01/28/20 17:18 Carbon Dioxide 28 mmol/L (22-30) 01/28/20 17:18 Anion Gap 13 mmol/L 01/28/20 17:18 BUN 41 mg/dL (7-17) H 01/28/20 17:18 Creatinine 1.7 mg/dL (0.6-1.2) H 01/28/20 17:18 Estimated GFR 35 ml/min 01/28/20 17:18 BUN/Creatinine Ratio 24 % 01/28/20 17:18 Glucose 124 mg/dL (65-100) H 01/28/20 17:18 Calcium 10.3 mg/dL (8.4-10.2) H 01/28/20 17:18 Phosphorus 3.70 mg/dL (2.5-4.5) 01/28/20 17:18 Magnesium 1.90 mg/dL (1.7-2.3) 01/28/20 17:18 Total Creatine Kinase 267 units/L (30-135) H 01/28/20 16:02 CK-MB (CK-2) 5.4 ng/mL (0.0-4.0) H 01/28/20 16:02 CK-MB (CK-2) Rel Index 2.0 (0-4) 01/28/20 16:02 Troponin T < 0.010 ng/mL (0.00-0.029) 01/28/20 16:02 Urine Color Straw (Yellow) 01/28/20 17:07 Urine Turbidity Clear (Clear) 01/28/20 17:07 Urine pH 5.0 (5.0-7.0) 01/28/20 17:07 Ur Specific [place] 1.008 (1.003-1.030) 01/28/20 17:07 Urine Protein 30 mg/dl mg/dL (Negative) 01/28/20 17:07 Urine Glucose (UA) Neg mg/dL (Negative) 01/28/20 17:07 Urine Ketones Neg mg/dL (Negative) 01/28/20 17:07 Urine Blood Sm (Negative) 01/28/20 17:07 Urine Nitrite Neg (Negative) 01/28/20 17:07 Urine Bilirubin Neg (Negative) 01/28/20 17:07 Urine Urobilinogen < 2.0 mg/dL (<2.0) 01/28/20 17:07 Ur Leukocyte Esterase Sm (Negative) 01/28/20 17:07 Urine WBC (Auto) 5.0 /HPF (0.0-6.0) 01/28/20 17:07 Urine RBC (Auto) 2.0 /HPF (0.0-6.0) 01/28/20 17:07 U Epithel Cells (Auto) < 1.0 /HPF (0-13.0) 01/28/20 17:07 Urine Bacteria (Auto) 1+ /HPF (Negative) 01/28/20 17:07 [place]/IV: Voiding Method External Female Catheter IV Catheter Type [Right Hand] INT / Saline Lock Assessment and Plan Advance Directives: Yes (Full code) VTE prophylaxis?: Chemical Plan of care discussed with patient/family: Yes - Patient Problems (1) Acute on chronic diastolic (congestive) heart failure Current Visit: Yes Status: Acute Plan to address problem: Patient initiated on IV Lasix and potassium Echocardiogram from last visit was reviewed Cardiology consult requested (2) Hypertension Current Visit: No Status: Chronic Qualifiers: Hypertension type: essential hypertension Plan to address problem: Continue antihypertensives (3) Chronic atrial fibrillation Current Visit: Yes Status: Chronic Plan to address problem: Continue Eliquis (4) Gout Current Visit: Yes Status: Chronic Plan to address problem: Continue allopurinol for prevention of gout (5) GERD (gastroesophageal reflux disease) Current Visit: Yes Status: Chronic Qualifiers: Esophagitis presence: without esophagitis Qualified Code(s): K21.9 - Gastro-esophageal reflux disease without esophagitis Plan to address problem: Continue to (6) DVT prophylaxis Current Visit: No Status: Acute Plan to address problem: On Eliquis and GI prophylaxis
[2020-01-29] MEDS ORDERED: ACETAMINOPHEN 325 MG TAB PO PRN (00:39)
[2020-01-29] MEDS ORDERED: ONDANSETRON 4 MG/2 ML INJ IV PRN (00:39)
[2020-01-29] MEDS ORDERED: HEPARIN 5,000 UNIT/1 ML VIAL SUB-Q SCH (00:45)
[2020-01-29] MEDS: APIXABAN 5 MG TAB PO SCH ×3 (01:18→10:15)
[2020-01-29] MEDS: POTASSIUM CHLORIDE ER 20 MEQ TAB PO SCH ×2 (01:23→10:15)
[2020-01-29] MEDS: METOPROLOL TARTRATE 25 MG TAB PO SCH ×2 (01:24→10:15)
[2020-01-29] MEDS: FUROSEMIDE 40 MG/4 ML INJ IV SCH ×2 (05:11→17:30)
[2020-01-29] MEDS ORDERED: NON-FORMULARY EACH (Losartan/Hydrochlorothiazide [Losartan-Hctz 100-25 Mg Tab] 1 EACH) PO SCH (10:00)
[2020-01-29] MEDS ORDERED: FAMOTIDINE 20 MG TAB PO SCH (10:00)
[2020-01-29] MEDS: LOSARTAN 50 MG TAB PO SCH (10:15)
[2020-01-29] MEDS: hydroCHLOROthiazide 25 MG TAB PO SCH (10:15)
[2020-01-29] MEDS: ASPIRIN 325 MG TAB PO SCH (10:15)
[2020-01-29] MEDS: allopurinoL 300 MG TAB PO SCH (10:15)
[2020-01-29] MEDS: FAMOTIDINE 10 MG TAB PO SCH (10:15)
--- NOTE | 2020-01-29 10:41 | Consultation ---
History of Present Illness Consult date: 01/29/20 Consult reason: congestive heart failure History of present illness: This is a 74-year old F with chronic shortness of breath and chronic heart f ailure. She also has permanent atrial fibrillation for which she is on eliquis for oral anticoagulation. Patient was brought to this hospital and admitted with shortness of breath and heart failure with a preserved ejection fraction. Of note, the patient was admitted to this hospital 2 weeks ago with similar presentation. Cardiac workup with an echocardiogram showed dilated right heart chambers with severe pulmonary hypertension, RVSP 81 mmHg. There was mildly dilated left atrium but normal left ventricular systolic function, ejection fraction 60-65%. Chest CTA scan was negative for PE. She reports compliance with dietary restrictions. She denies chest pain and denies palpitations. Lower extremity edema has resolved since she was treated in the ED. An ECG is atrial fibrillation with a well controlled ventricular rate. Medications and Allergies Allergies Allergy/AdvReac Type Severity Reaction Status Date / Time apple Allergy Swelling Verified 01/13/20 11:27 metformin Allergy Diarrhea Verified 03/03/18 15:10 codeine AdvReac Unknown Verified 03/13/15 23:27 Home Medications Medication Instructions Recorded Confirmed Last Taken Type Apixaban [Eliquis] 5 mg PO BID #60 tablet 03/16/15 01/22/20 03/03/18 Rx Apixaban [Eliquis] 5 mg PO Q12HR #60 tablet 01/16/20 01/22/20 Unknown Rx Furosemide [Lasix TAB] 20 mg PO BID #60 01/16/20 01/22/20 Unknown Rx Losartan/Hydrochlorothiazide 1 each PO DAILY #30 01/16/20 01/22/20 Unknown Rx [Losartan-Hctz 100-25 mg Tab] Metoprolol [Lopressor TAB] 25 mg PO BID #60 tablet 01/16/20 01/22/20 Unknown Rx allopurinoL [Zyloprim] 300 mg PO QDAY #30 01/16/20 01/22/20 Unknown Rx Famotidine [Pepcid] 20 mg PO BID #20 tablet 01/22/20 Unknown Rx Ondansetron [Zofran Odt] 4 mg PO Q8HR PRN #20 tab.rapdis 01/22/20 Unknown Rx traMADoL [Ultram 50 MG tab] 50 mg PO Q6HR PRN #20 tablet 01/22/20 Unknown Rx Active Meds: Active Medications Acetaminophen (Tylenol) 650 mg PO Q4H PRN PRN Reason: Pain MILD(1-3)/Fever >100.5/SUNG Allopurinol (Zyloprim) 300 mg PO QDAY [facility] Last Admin: 01/29/20 10:15 Dose: 300 mg Documented by: Apixaban (Eliquis) 5 mg PO BID [facility]; Protocol Last Admin: 01/29/20 10:15 Dose: 5 mg Documented by: Aspirin (Aspirin) 325 mg PO QDAY [facility] Last Admin: 01/29/20 10:15 Dose: 325 mg Documented by: Famotidine (Pepcid) 10 mg PO BID [facility] Last Admin: 01/29/20 10:15 Dose: 10 mg Documented by: Furosemide (Lasix) 40 mg IV 0600,1800 [facility] Last Admin: 01/29/20 05:11 Dose: Not Given Documented by: Hydrochlorothiazide (Hctz) 25 mg PO DAILY [facility] Last Admin: 01/29/20 10:15 Dose: 25 mg Documented by: Losartan Potassium (Cozaar) 100 mg PO DAILY [facility] Last Admin: 01/29/20 10:15 Dose: 100 mg Documented by: Metoprolol Tartrate (Metoprolol) 25 mg PO BID [facility] Last Admin: 01/29/20 10:15 Dose: 25 mg Documented by: Ondansetron HCl (Zofran Odt) 4 mg PO Q8HR PRN PRN Reason: Nausea And Vomiting Ondansetron HCl (Zofran) 4 mg IV Q8H PRN PRN Reason: Nausea And Vomiting Potassium Chloride (K-Dur) 20 meq PO Q12HR [facility] Last Admin: 01/29/20 10:15 Dose: 20 meq Documented by: Sodium Chloride (Sodium Chloride Flush Syringe 10 Ml) 10 ml IV BID [facility] Last Admin: 01/29/20 10:17 Dose: 10 ml Documented by: Sodium Chloride (Sodium Chloride Flush Syringe 10 Ml) 10 ml IV PRN PRN PRN Reason: LINE FLUSH Tramadol HCl (Ultram) 50 mg PO Q6HR PRN PRN Reason: Pain, Moderate (4-6) Physical Examination Vital Signs Temp Pulse Resp BP Pulse Ox 98.4 F 64 17 157/68 94 01/28/20 15:25 01/28/20 15:25 01/28/20 15:25 01/28/20 15:25 01/28/20 15:25 General appearance: no acute distress HEENT: Positive: PERRL Neck: Positive: trachea midline Cardiac: Positive: irregularly irregular Lungs: Positive: Decreased Breath Sounds Neuro: Positive: Grossly Intact Extremities: Absent: edema Results 01/28/20 16:02 01/28/20 17:18 Cardiac Enzymes 01/28/20 Range/Units 16:02 CK-MB (CK-2) 5.4 H (0.0-4.0) ng/mL Coagulation 01/28/20 Range/Units 16:02 PT 17.4 H (12.2-14.9) Sec. INR 1.41 H (0.87-1.13) APTT 33.5 (24.2-36.6) Sec. CBC 01/28/20 Range/Units 16:02 WBC 5.7 (4.5-11.0) K/mm3 RBC 3.48 L (3.65-5.03) M/mm3 Hgb 9.9 L (10.1-14.3) gm/dl Hct 30.0 L (30.3-42.9) % Plt Count 282 (140-440) K/mm3 Comprehensive Metabolic Panel 01/28/20 01/28/20 Range/Units 16:02 17:18 Sodium 129 L 132 L (137-145) mmol/L Potassium 6.2 H* 4.6 D (3.6-5.0) mmol/L Chloride 94.9 L 95.9 L (98-107) mmol/L Carbon Dioxide 24 28 (22-30) mmol/L BUN 41 H 41 H (7-17) mg/dL Creatinine 1.6 H 1.7 H (0.6-1.2) mg/dL Glucose 142 H 124 H (65-100) mg/dL Calcium 10.2 10.3 H (8.4-10.2) mg/dL Assessment and Plan Heart failure with a preserved ejection fraction normal EF and no ischemia by MPI 02/2018 normal LVEF 60-65% by recent echo Pulmonary hypertension recent echo showed dilated right heart chambers with severe pulmonary hypertension, RVSP 81 mmHg. Chronic shortness of breath Chronic atrial fibrillation, rate control on Eliquis for anticoagulation as an outpatient Diabetes Hypertension Recommendations: Dietary restriction. Continue medical therapy for heart failure with a preserved ejection fraction an d chronic atrial fibrillation. Consider pulmonary consultation for shortness of breath and pulmonary hypertension.
[2020-01-29] MEDS ORDERED: METOPROLOL TARTRATE 25 MG TAB ONE (23:00)
[2020-01-29] MEDS ORDERED: FUROSEMIDE 40 MG/4 ML INJ ONE (23:00)
[2020-01-29] MEDS ORDERED: APIXABAN 5 MG TAB ONE (23:00)
[2020-01-29] MEDS ORDERED: POTASSIUM CHLORIDE ER 20 MEQ TAB PO ONE (23:00)
[2020-01-30] MEDS ORDERED: FUROSEMIDE 40 MG/4 ML INJ ONE (05:00)
[2020-01-30] MEDS ORDERED: METOPROLOL TARTRATE 25 MG TAB ONE (10:00)
[2020-01-30] MEDS ORDERED: ASPIRIN 325 MG TAB ONE (10:00)
[2020-01-30] MEDS ORDERED: hydroCHLOROthiazide 25 MG TAB ONE (10:00)
[2020-01-30] MEDS ORDERED: allopurinoL 300 MG TAB ONE (10:00)
[2020-01-30] MEDS ORDERED: LOSARTAN 50 MG TAB ONE (10:00)
[2020-01-30] MEDS ORDERED: FAMOTIDINE 10 MG TAB ONE (10:00)
[2020-01-30] MEDS ORDERED: APIXABAN 5 MG TAB ONE (10:00)
[2020-01-30] MEDS ORDERED: POTASSIUM CHLORIDE ER 20 MEQ TAB PO ONE (10:00)
--- NOTE | 2020-01-30 18:03 | Progress Note ---
Assessment and Plan - Patient Problems (1) Heart failure with preserved ejection fraction Current Visit: Yes Status: Acute Plan to address problem: Continue diuretic therapy and management of hypertension. (2) Chronic atrial fibrillation Current Visit: Yes Status: Acute Plan to address problem: Continue rate control strategy of atrial fibrillation and chronic oral anticoagulation. Subjective Date of service: 01/30/20 Interval history: Patient looks and feels better, no new cardiac complaints. Objective - Physical Examination General: No Apparent Distress HEENT: Positive: PERRL Neck: Positive: trachea midline Cardiac: Positive: irregularly irregular Lungs: Positive: Decreased Breath Sounds Neuro: Positive: Grossly Intact Abdomen: Positive: Soft Skin: Positive: Clear Extremities: Absent: edema
--- NOTE | 2020-01-30 18:14 | Progress Note ---
Assessment and Plan Assessment and plan: (1) Acute on chronic diastolic (congestive) heart failure Cont. on IV Lasix, salt restricted diet and blood pressure control. Echocardiogram from last visit was reviewed Cardiology following Hypertension Continue antihypertensives Chronic atrial fibrillation Continue Eliquis Rate control DMII Sz d/o Gout Continue allopurinol for prevention of gout GERD (gastroesophageal reflux disease) PPI DVT prophylaxis On Eliquis and GI prophylaxis History Interval history: No new issues Hospitalist Physical - Constitutional Vitals: Temp Pulse Resp BP Pulse Ox 98.3 F 67 18 155/74 95 01/29/20 16:09 01/29/20 16:09 01/29/20 16:09 01/29/20 16:09 01/29/20 16:09 General appearance: Present: no acute distress, well-nourished - EENT Eyes: Present: PERRL, EOM intact ENT: hearing intact, clear oral mucosa, dentition normal - Neck Neck: Present: supple, normal ROM - Respiratory Respiratory effort: normal Respiratory: bilateral: CTA - Cardiovascular Rhythm: regular Heart Sounds: Present: S1 & S2. Absent: gallop, rub - Extremities Extremities: no ischemia, No edema, Full ROM - Abdominal General gastrointestinal: soft, non-tender, non-distended, normal bowel sounds - Integumentary Integumentary: Present: clear, warm, dry - Neurologic Neurologic: CNII-XII intact, moves all extremities HEART Score - HEART Score Troponin: Troponin T < 0.010 ng/mL (0.00-0.029) 01/28/20 16:02 Results - Labs CBC & Chem 7: 01/28/20 16:02 01/28/20 17:18 Labs: Laboratory Last Values WBC 5.7 K/mm3 (4.5-11.0) 01/28/20 16:02 RBC 3.48 M/mm3 (3.65-5.03) L 01/28/20 16:02 Hgb 9.9 gm/dl (10.1-14.3) L 01/28/20 16:02 Hct 30.0 % (30.3-42.9) L 01/28/20 16:02 MCV 86 fl (79-97) 01/28/20 16:02 MCH 29 pg (28-32) 01/28/20 16:02 MCHC 33 % (30-34) 01/28/20 16:02 RDW 20.1 % (13.2-15.2) H 01/28/20 16:02 Plt Count 282 K/mm3 (140-440) 01/28/20 16:02 Add Manual Diff Complete 01/28/20 16:02 Total Counted 100 01/28/20 16:02 Seg Neuts % (Manual) 61.0 % (40.0-70.0) 01/28/20 16:02 Band Neutrophils % 1.0 % 01/28/20 16:02 Lymphocytes % (Manual) 26.0 % (13.4-35.0) 01/28/20 16:02 Reactive Lymphs % (Man) 0 % 01/28/20 16:02 Monocytes % (Manual) 9.0 % (0.0-7.3) H 01/28/20 16:02 Eosinophils % (Manual) 1.0 % (0.0-4.3) 01/28/20 16:02 Basophils % (Manual) 1.0 % (0.0-1.8) 01/28/20 16:02 Metamyelocytes % 1.0 % 01/28/20 16:02 Myelocytes % 0 % 01/28/20 16:02 Promyelocytes % 0 % 01/28/20 16:02 Blast Cells % 0 % 01/28/20 16:02 Nucleated RBC % Not Reportable 01/28/20 16:02 Seg Neutrophils # Man 3.5 K/mm3 (1.8-7.7) 01/28/20 16:02 Band Neutrophils # 0.1 K/mm3 01/28/20 16:02 Lymphocytes # (Manual) 1.5 K/mm3 (1.2-5.4) 01/28/20 16:02 Abs React Lymphs (Man) 0.0 K/mm3 01/28/20 16:02 Monocytes # (Manual) 0.5 K/mm3 (0.0-0.8) 01/28/20 16:02 Eosinophils # (Manual) 0.1 K/mm3 (0.0-0.4) 01/28/20 16:02 Basophils # (Manual) 0.1 K/mm3 (0.0-0.1) 01/28/20 16:02 Metamyelocytes # 0.1 K/mm3 01/28/20 16:02 Myelocytes # 0.0 K/mm3 01/28/20 16:02 Promyelocytes # 0.0 K/mm3 01/28/20 16:02 Blast Cells # 0.0 K/mm3 01/28/20 16:02 WBC Morphology Not Reportable 01/28/20 16:02 Hypersegmented Neuts Not Reportable 01/28/20 16:02 Hyposegmented Neuts Not Reportable 01/28/20 16:02 Hypogranular Neuts Not Reportable 01/28/20 16:02 Smudge Cells Not Reportable 01/28/20 16:02 Toxic Granulation Not Reportable 01/28/20 16:02 Toxic Vacuolation Not Reportable 01/28/20 16:02 Dohle Bodies Not Reportable 01/28/20 16:02 Pelger-Huet Anomaly Not Reportable 01/28/20 16:02 Eyal Rods Not Reportable 01/28/20 16:02 Platelet Estimate Consistent w auto 01/28/20 16:02 Clumped Platelets Not Reportable 01/28/20 16:02 Plt Clumps, EDTA Not Reportable 01/28/20 16:02 Large Platelets Not Reportable 01/28/20 16:02 Giant Platelets Not Reportable 01/28/20 16:02 Platelet Satelliting Not Reportable 01/28/20 16:02 Plt Morphology Comment Not Reportable 01/28/20 16:02 RBC Morphology Not Reportable 01/28/20 16:02 Dimorphic RBCs Not Reportable 01/28/20 16:02 Polychromasia Not Reportable 01/28/20 16:02 Hypochromasia Not Reportable 01/28/20 16:02 Poikilocytosis Not Reportable 01/28/20 16:02 Anisocytosis 1+ 01/28/20 16:02 Microcytosis Not Reportable 01/28/20 16:02 Macrocytosis Not Reportable 01/28/20 16:02 Spherocytes Not Reportable 01/28/20 16:02 Pappenheimer Bodies Not Reportable 01/28/20 16:02 Sickle Cells Not Reportable 01/28/20 16:02 Target Cells Not Reportable 01/28/20 16:02 Tear Drop Cells Not Reportable 01/28/20 16:02 Ovalocytes Rare 01/28/20 16:02 Helmet Cells Not Reportable 01/28/20 16:02 [place] Bodies Not Reportable 01/28/20 16:02 [place] Rings Not Reportable 01/28/20 16:02 Ernst Cells Not Reportable 01/28/20 16:02 Bite Cells Not Reportable 01/28/20 16:02 Crenated Cell Rare 01/28/20 16:02 Elliptocytes Not Reportable 01/28/20 16:02 Acanthocytes (Spur) Not Reportable 01/28/20 16:02 Rouleaux Not Reportable 01/28/20 16:02 Hemoglobin C Crystals Not Reportable 01/28/20 16:02 Schistocytes Not Reportable 01/28/20 16:02 Malaria parasites Not Reportable 01/28/20 16:02 Michael Bodies Not Reportable 01/28/20 16:02 Hem Pathologist Commnt No 01/28/20 16:02 PT 17.4 Sec. (12.2-14.9) H 01/28/20 16:02 INR 1.41 (0.87-1.13) H 01/28/20 16:02 APTT 33.5 Sec. (24.2-36.6) 01/28/20 16:02 Sodium 132 mmol/L (137-145) L 01/28/20 17:18 Potassium 4.6 mmol/L (3.6-5.0) D 01/28/20 17:18 Chloride 95.9 mmol/L (98-107) L 01/28/20 17:18 Carbon Dioxide 28 mmol/L (22-30) 01/28/20 17:18 Anion Gap 13 mmol/L 01/28/20 17:18 BUN 41 mg/dL (7-17) H 01/28/20 17:18 Creatinine 1.7 mg/dL (0.6-1.2) H 01/28/20 17:18 Estimated GFR 35 ml/min 01/28/20 17:18 BUN/Creatinine Ratio 24 % 01/28/20 17:18 Glucose 124 mg/dL (65-100) H 01/28/20 17:18 Calcium 10.3 mg/dL (8.4-10.2) H 01/28/20 17:18 Phosphorus 3.70 mg/dL (2.5-4.5) 01/28/20 17:18 Magnesium 1.90 mg/dL (1.7-2.3) 01/28/20 17:18 Total Creatine Kinase 267 units/L (30-135) H 01/28/20 16:02 CK-MB (CK-2) 5.4 ng/mL (0.0-4.0) H 01/28/20 16:02 CK-MB (CK-2) Rel Index 2.0 (0-4) 01/28/20 16:02 Troponin T < 0.010 ng/mL (0.00-0.029) 01/28/20 16:02 Urine Color Straw (Yellow) 01/28/20 17:07 Urine Turbidity Clear (Clear) 01/28/20 17:07 Urine pH 5.0 (5.0-7.0) 01/28/20 17:07 Ur Specific Rex 1.008 (1.003-1.030) 01/28/20 17:07 Urine Protein 30 mg/dl mg/dL (Negative) 01/28/20 17:07 Urine Glucose (UA) Neg mg/dL (Negative) 01/28/20 17:07 Urine Ketones Neg mg/dL (Negative) 01/28/20 17:07 Urine Blood Sm (Negative) 01/28/20 17:07 Urine Nitrite Neg (Negative) 01/28/20 17:07 Urine Bilirubin Neg (Negative) 01/28/20 17:07 Urine Urobilinogen < 2.0 mg/dL (<2.0) 01/28/20 17:07 Ur Leukocyte Esterase Sm (Negative) 01/28/20 17:07 Urine WBC (Auto) 5.0 /HPF (0.0-6.0) 01/28/20 17:07 Urine RBC (Auto) 2.0 /HPF (0.0-6.0) 01/28/20 17:07 U Epithel Cells (Auto) < 1.0 /HPF (0-13.0) 01/28/20 17:07 Urine Bacteria (Auto) 1+ /HPF (Negative) 01/28/20 17:07 Quevedo/IV: Voiding Method Bedside Commode IV Catheter Type [Right Hand] INT / Saline Lock Active Medications - Current Medications Current Medications: Generic Name Dose Route Start Last Admin Trade Name Freq PRN Reason Stop Dose Admin Acetaminophen 650 mg 01/29/20 00:39 Tylenol PO Q4H PRN Pain MILD(1-3)/Fever >100.5/SUNG Allopurinol 300 mg 01/29/20 10:00 01/29/20 10:15 Zyloprim PO 300 mg QDAY [facility]ON Administration Apixaban 5 mg 01/29/20 01:00 01/29/20 10:15 Eliquis PO 5 mg BID [facility]ON Administration Protocol Aspirin 325 mg 01/28/20 18:00 01/29/20 10:15 Aspirin PO 325 mg QDAY [facility]ON Administration Famotidine 10 mg 01/29/20 10:00 01/29/20 10:15 Pepcid PO 10 mg BID [facility]ON Administration Furosemide 40 mg 01/29/20 06:00 01/29/20 17:30 Lasix IV 40 mg 0600,1800 [facility]ON Administration Hydrochlorothiazide 25 mg 01/29/20 10:00 01/29/20 10:15 Hctz PO 25 mg DAILY [facility] Administration Losartan Potassium 100 mg 01/29/20 10:00 01/29/20 10:15 Cozaar PO 100 mg DAILY [facility] Administration Metoprolol Tartrate 25 mg 01/29/20 01:00 01/29/20 10:15 Metoprolol PO 25 mg BID [facility] Administration Ondansetron HCl 4 mg 01/29/20 00:37 Zofran Odt PO Q8HR PRN Nausea And Vomiting Ondansetron HCl 4 mg 01/29/20 00:39 Zofran IV Q8H PRN Nausea And Vomiting Potassium Chloride 20 meq 01/29/20 01:00 01/29/20 10:15 K-Dur PO 20 meq Q12HR [facility]ON Administration Sodium Chloride 10 ml 01/29/20 01:00 01/29/20 10:17 Sodium Chloride Flush Syringe 10 Ml IV 10 ml BID [facility] Administration Sodium Chloride 10 ml 01/29/20 00:39 Sodium Chloride Flush Syringe 10 Ml IV PRN PRN LINE FLUSH Tramadol HCl 50 mg 01/29/20 00:37 Ultram PO Q6HR PRN Pain, Moderate (4-6)
[2020-01-30] MEDS: FAMOTIDINE 10 MG TAB PO SCH (21:42)
[2020-01-30] MEDS: POTASSIUM CHLORIDE ER 20 MEQ TAB PO SCH (21:42)
[2020-01-30] MEDS: METOPROLOL TARTRATE 25 MG TAB PO SCH (21:43)
[2020-01-30] MEDS: APIXABAN 5 MG TAB PO SCH (21:43)
[2020-01-30] MEDS: FUROSEMIDE 40 MG/4 ML INJ IV SCH (21:44)
--- NOTE | 2020-01-30 22:06 | Progress Note ---
Assessment and Plan - Patient Problems (1) Acute on chronic diastolic (congestive) heart failure Current Visit: Yes Status: Acute Plan to address problem: Patient initiated on IV Lasix and potassium Echocardiogram from last visit was reviewed Cardiology consult requested (2) Hypertension Current Visit: No Status: Chronic Qualifiers: Hypertension type: essential hypertension Plan to address problem: Continue antihypertensives (3) Chronic atrial fibrillation Current Visit: Yes Status: Chronic Plan to address problem: Continue Eliquis (4) Gout Current Visit: Yes Status: Chronic Plan to address problem: Continue allopurinol for prevention of gout (5) GERD (gastroesophageal reflux disease) Current Visit: Yes Status: Chronic Qualifiers: Esophagitis presence: without esophagitis Qualified Code(s): K21.9 - Gastro-esophageal reflux disease without esophagitis Plan to address problem: Continue to (6) DVT prophylaxis Current Visit: No Status: Acute Plan to address problem: On Eliquis and GI prophylaxis Subjective Date of service: 01/29/20 Principal diagnosis: CHF exacerbation Interval history: 74-year-old female with history of congestive heart failure comes in for increasing shortness of breath and increasing abdominal girth. Patient has atrial fibrillation and is on Eliquis. She denies fever cough or chills. Lives with her . Patient has orthopnea and class IV NYHA symptoms. Ejection fraction was 2049 to 55% in 2014. Patient also has diabetes. And seizure disorder and old CVA. Last admission from January 2020 was reviewed. Patient was admitted for acute respiratory failure and acute congestive heart failure. 01/29/2020 Patient symptomatically slightly better Still has shortness of breath and swelling of the legs Objective - Constitutional Vitals: Vital Signs - 12hr 01/30/20 01/30/20 01/30/20 13:00 18:07 21:43 Temperature 98.2 F 97.4 F L Pulse Rate 64 66 60 Respiratory 22 22 Rate Blood Pressure 158/79 155/67 108/45 O2 Sat by Pulse 98 96 Oximetry 01/30/20 22:01 Temperature Pulse Rate Respiratory Rate Blood Pressure O2 Sat by Pulse 96 Oximetry General appearance: Present: no acute distress, well-nourished - EENT Eyes: PERRL, EOM intact ENT: hearing intact, clear oral mucosa Ears: bilateral: normal - Neck Neck: supple, normal ROM - Respiratory Respiratory effort: normal Respiratory: bilateral: CTA - Breasts Breasts: normal - Cardiovascular Heart rate: 78 Rhythm: irregularly irregular Heart Sounds: Present: S1 & S2. Absent: gallop, rub Extremities: pulses intact, normal color, Full ROM Extremity abnormal: edema (2+ pedal edema present) - Gastrointestinal General gastrointestinal: Present: soft, non-tender, non-distended, normal bowel sounds - Genitourinary Female genitourinary: normal - Integumentary Integumentary: clear, warm, dry - Musculoskeletal Musculoskeletal: 1, strength equal bilaterally - Neurologic Neurologic: moves all extremities - Psychiatric Psychiatric: memory intact, appropriate mood/affect, intact judgment & insight - Labs CBC & Chem 7: 01/28/20 16:02 01/28/20 17:18 HEART Score - HEART Score Troponin: Troponin T < 0.010 ng/mL (0.00-0.029) 01/28/20 16:02
[2020-01-31] MEDS: FUROSEMIDE 40 MG/4 ML INJ IV SCH (05:11)
--- NOTE | 2020-01-31 07:50 | Discharge Summary ---
Providers - Providers Date of Admission: 01/29/20 09:35 Date of discharge: 01/31/20 Attending physician: AQUILINO DYKES 01/28/20 17:13 Consult to Physician [CONS] Routine Comment: Consulting Provider: DESIREE QUINONEZ Physician Instructions: Reason For Exam: CHF, renal insufficiency 01/29/20 00:44 Consult to Physician [CONS] Routine Comment: Consulting Provider: DESIREE QUINONEZ Physician Instructions: Reason For Exam: CHF exacerbation 01/29/20 04:15 Physical Therapy Evaluation and Treat [CONS] Routine Comment: Reason For Exam: weakness 01/29/20 09:22 Consult to Physician [CONS] Routine Comment: Consulting Provider: DESIREE QUINONEZ Physician Instructions: Reason For Exam: CHF 01/29/20 12:09 Occupational Therapy Evaluate and Treat [CONS] Routine Comment: Reason For Exam: generalized weakness Primary care physician: CLEANING STAFF SUPERVISOR Hospitalization Reason for admission: chf Condition: Stable Hospital course: 74-year-old woman with a history of hypertension, chronic atrial fibrillation and heart failure with preserved ejection fraction. On her most recent presentation 2 weeks ago, her left ventricular ejection fraction was 60 to 65%. She is on rate control strategy for her chronic atrial fibrillation, and is treated with Eliquis for long-term oral anticoagulation. She was admitted to the hospital this time with complaints of increasing shortness of breath over several days, and orthopnea. ECG showed well-controlled atrial fibrillation, but no ST or T wave changes of ischemia. Chest x-ray showed a moderate severity cardiomegaly with a small to moderate right pleural effusion. There is minimal to no significant interstitial edema. The patient was admitted with diagnosis of acute hypoxic respiratory failure and acute on chronic diastolic heart failure. The patient was treated with IV diuresis with Lasix and salt restricted diet as well as blood pressure control. Patient initially received supplemental oxygen which was weaned off and patient was back to baseline on room air satting in the high 90s. PT evaluated the patient and recommended home health PT. Patient is felt to receive maximal hospital benefit and will be discharged home. Dedicated discharge time 35 minutes Disposition: [id number] TO HOME OR SELFCARE Time spent for discharge: 35 - Discharge Diagnoses (1) Acute on chronic diastolic (congestive) heart failure Status: Acute (2) Chronic anticoagulation Status: Acute (3) GERD (gastroesophageal reflux disease) Status: Chronic Qualifiers: Esophagitis presence: without esophagitis Qualified Code(s): K21.9 - Gastro-esophageal reflux disease without esophagitis (4) Gout Status: Chronic (5) Acute respiratory failure with hypoxia Status: Acute (6) Diabetes mellitus Status: Acute (7) Morbid obesity Status: Acute Core Measure Documentation - Palliative Care Palliative Care/ Comfort Measures: Not Applicable - Core Measures Any of the following diagnoses?: none Exam - Constitutional Vitals: Temp Pulse Resp BP Pulse Ox 98.5 F 87 16 154/69 100 01/31/20 03:37 01/31/20 03:37 01/31/20 03:37 01/31/20 03:37 01/31/20 03:37 General appearance: Present: no acute distress, well-nourished - EENT Eyes: Present: PERRL ENT: hearing intact, clear oral mucosa - Neck Neck: Present: supple, normal ROM - Respiratory Respiratory effort: normal Respiratory: bilateral: CTA - Cardiovascular Heart Sounds: Present: S1 & S2. Absent: rub, click - Extremities Extremities: pulses symmetrical, No edema Peripheral Pulses: within normal limits - Abdominal General gastrointestinal: Present: soft, non-tender, non-distended, normal bowel sounds Female genitourinary: Present: normal - Integumentary Integumentary: Present: clear, warm, dry - Musculoskeletal Musculoskeletal: gait normal, strength equal bilaterally - Psychiatric Psychiatric: appropriate mood/affect, intact judgment & insight - Neurologic Neurologic: CNII-XII intact, moves all extremities Plan Activity: advance as tolerated Weight Bearing Status: Weight Bear as Tolerated Diet: low fat, low cholesterol, low salt Special Instructions: restrict fluid intake to (1L), physical therapy Follow up with: PRIMARY CARE, [Primary Care Provider] - 7 Days Prescriptions: Apixaban [Eliquis] 5 mg PO BID #60 tablet Potassium Chloride [K-Dur] 10 meq PO QDAY #30 tablet Furosemide [Lasix TAB] 20 mg PO BID #60 Metoprolol [Lopressor TAB] 25 mg PO BID #60 tablet Losartan/Hydrochlorothiazide [Losartan-Hctz 100-25 mg Tab] 1 each PO DAILY #30 Famotidine [Pepcid] 20 mg PO BID #20 tablet traMADoL [Ultram 50 MG tab] 50 mg PO Q6HR PRN #20 tablet PRN Reason: Pain allopurinoL [Zyloprim] 300 mg PO QDAY #30
--- NOTE | 2020-01-31 09:25 | Progress Note ---
Assessment and Plan Heart failure with a preserved ejection fraction normal EF and no ischemia by MPI 02/2018 normal LVEF 60-65% by recent echo Pulmonary hypertension recent echo showed dilated right heart chambers with severe pulmonary hypertension, RVSP 81 mmHg. Chronic shortness of breath Chronic atrial fibrillation, rate control on Eliquis for anticoagulation as an outpatient Diabetes Hypertension Recommendations: Advised dietary restrictions. Continue medical therapy for heart failure with a preserved ejection fraction and chronic atrial fibrillation. Subjective Date of service: 01/31/20 Principal diagnosis: CHF exacerbation Interval history: Patient is resting in bed and appears comfortable. Atrial fibrillation with a well controlled ventricular rate. Objective Vital Signs Temp Pulse Resp BP BP Pulse Ox 01/31/20 09:05 100 01/31/20 03:37 98.5 F 87 16 154/69 100 01/31/20 02:01 97.1 F L 71 20 116/68 99 01/30/20 22:01 96 01/30/20 21:43 60 108/45 01/30/20 18:07 97.4 F L 66 22 155/67 96 01/30/20 13:00 98.2 F 64 22 158/79 98 - Physical Examination General: No Apparent Distress HEENT: Positive: PERRL Neck: Positive: trachea midline Cardiac: Positive: irregularly irregular Neuro: Positive: Grossly Intact Extremities: Absent: edema
[2020-01-31] MEDS: FAMOTIDINE 10 MG TAB PO SCH (09:37)
[2020-01-31] MEDS: APIXABAN 5 MG TAB PO SCH (09:37)
[2020-01-31] MEDS: POTASSIUM CHLORIDE ER 20 MEQ TAB PO SCH (09:37)
[2020-01-31] MEDS: allopurinoL 300 MG TAB PO SCH (09:37)
[2020-01-31] MEDS: LOSARTAN 50 MG TAB PO SCH (09:38)
[2020-01-31] MEDS: METOPROLOL TARTRATE 25 MG TAB PO SCH (09:38)
[2020-01-31] MEDS: hydroCHLOROthiazide 25 MG TAB PO SCH (09:38)
[2020-01-31] MEDS: ASPIRIN 325 MG TAB PO SCH (09:38)
[2020-01-31 10:59] VITALS: BP 139/73
== END 2020-01-31 14:00 | disposition home or self-care (01) | DRG 189 ==
LOC: ED 15:21 → INTOOBSV 18:25 → 3A 18:25 → OBSVTOIN 01-29 09:35
PROVIDERS: ADMIT Internal Medicine; ATTEND Hospitalist
DX: J96.01 Acute respiratory failure with hypoxia (principal); I50.33 Acute on chronic diastolic (congestive) heart failure; I13.0 Hypertensive heart and chronic kidney disease with heart failure and stage 1 through stage 4 chronic kidney disease, or unspecified chronic kidney disease; E87.1 Hypo-osmolality and hyponatremia; I48.20 Chronic atrial fibrillation, unspecified; Z68.41 Body mass index [BMI] 40.0-44.9, adult; E87.5 Hyperkalemia; I27.81 Cor pulmonale (chronic); I27.20 Pulmonary hypertension, unspecified; K21.9 Gastro-esophageal reflux disease without esophagitis; M10.9 Gout, unspecified; E66.01 Morbid (severe) obesity due to excess calories; G40.909 Epilepsy, unspecified, not intractable, without status epilepticus; N18.9 Chronic kidney disease, unspecified; E11.22 Type 2 diabetes mellitus with diabetic chronic kidney disease; Z79.01 Long term (current) use of anticoagulants; Z88.5 Allergy status to narcotic agent; Z79.899 Other long term (current) drug therapy; Z86.73 Personal history of transient ischemic attack (TIA), and cerebral infarction without residual deficits; Z82.49 Family history of ischemic heart disease and other diseases of the circulatory system
CPT/HCPCS: 36415; 71045; 80048; 81001; 82550; 82553; 83735; 84100; 84484; 85007; 85025; 85610; 85730; 93005; 96361; 96365; 96366; 96375; G0378; J1940

== ENCOUNTER 2020-02-14 15:20 | Emergency (ER) | payer MEDICARE ==
[2020-02-14 18:28] LABS: Basophils % (Auto) 0.5 % (0.0-1.8); Eosinophils # (Auto) 0.3 K/mm3 (0.0-0.4); Eosinophils % (Auto) 4.7 % (0.0-4.3); Hematocrit 29.3 % (30.3-42.9); Hemoglobin 9.1 gm/dl (10.1-14.3); Lymphocytes # (Auto) 1.3 K/mm3 (1.2-5.4); Lymphocytes % (Auto) 22.5 % (13.4-35.0); Mean Corpuscular HGB Conc 31 % (30-34); Mean Corpuscular Volume 88 fl (79-97); Monocytes # (Auto) 0.8 K/mm3 (0.0-0.8); Monocytes % (Auto) 13.3 % (0.0-7.3); Platelet Count 239 K/mm3 (140-440); Red Blood Count 3.34 M/mm3 (3.65-5.03)
[2020-02-14 18:50] LABS: Albumin 3.4 g/dL (3.9-5); Calcium 10.6 mg/dL (8.4-10.2)
--- NOTE | 2020-02-14 19:17 | XRay Report ---
CHEST 1 VIEW INDICATION: sob COMPARISON: 01/28/2020 FINDINGS: Support devices: None Heart: Stable. Lungs/Pleura: Posteriorly layering right pleural effusion, with what appears to be minimal interstiti al edema. IMPRESSION: 1. Findings suggest mild congestive failure, not significantly changed from the previous exam. Signer Name: Samm Coronado MD Signed: 02/14/2020 7:13 PM Workstation Name: [id number]
[2020-02-14] MEDS ORDERED: FUROSEMIDE 40 MG/4 ML INJ IV ONE (19:40)
--- NOTE | 2020-02-14 19:40 | Emergency Department Report ---
ED General Adult HPI - General Chief complaint: Dyspnea/Respdistress Stated complaint: FLUID BUILD UP Time Seen by Provider: 02/14/20 16:57 Source: patient, EMS Mode of arrival: Stretcher Limitations: Physical Limitation - History of Present Illness Initial comments: Patient presents to the emergency department with a chief complaint of abdominal pain. Per the patient's daughter she states Kenn has shortness of breath and had a recent admission for CHF. Daughter states she is having exacerbation of her congestive heart failure. Per EMS on their arrival the patient was 90% on room air upon arrival to the emergency department she was 97% on room air. Patient denies any chest pain or headache. -: unknown Severity scale (0 -10): 0 Consistency: constant Improves with: none Worsens with: none Associated Symptoms: denies other symptoms Treatments Prior to Arrival: none - Related Data Previous Rx's Medication Instructions Recorded Last Taken Type Apixaban [Eliquis] 5 mg PO BID #60 tablet 03/16/15 03/03/18 Rx Apixaban [Eliquis] 5 mg PO Q12HR #60 tablet 01/16/20 Unknown Rx Ondansetron [Zofran ODT TAB] 4 mg PO Q8HR PRN #20 tab.rapdis 01/22/20 Unknown Rx Apixaban [Eliquis] 5 mg PO BID #60 tablet 01/31/20 Unknown Rx Aspirin 325 mg PO QDAY tablet 01/31/20 Unknown Rx Famotidine [Pepcid] 20 mg PO BID #20 tablet 01/31/20 Unknown Rx Furosemide [Lasix TAB] 20 mg PO BID #60 01/31/20 Unknown Rx Losartan/Hydrochlorothiazide 1 each PO DAILY #30 01/31/20 Unknown Rx [Losartan-Hctz 100-25 mg Tab] Metoprolol [Lopressor TAB] 25 mg PO BID #60 tablet 01/31/20 Unknown Rx Potassium Chloride [K-Dur] 10 meq PO QDAY #30 tablet 01/31/20 Unknown Rx allopurinoL [Zyloprim] 300 mg PO QDAY #30 01/31/20 Unknown Rx traMADoL [Ultram 50 MG tab] 50 mg PO Q6HR PRN #20 tablet 01/31/20 Unknown Rx Allergies Allergy/AdvReac Type Severity Reaction Status Date / Time apple Allergy Swelling Verified 01/13/20 11:27 metformin Allergy Diarrhea Verified 03/03/18 15:10 codeine AdvReac Unknown Verified 03/13/15 23:27 ED Review of Systems ROS: Stated complaint: FLUID BUILD UP Other details as noted in HPI Comment: All other systems reviewed and negative Constitutional: denies: chills, fever Eyes: denies: eye pain, eye discharge, vision change ENT: denies: ear pain, throat pain Respiratory: denies: cough, shortness of breath, wheezing Cardiovascular: denies: chest pain, palpitations Endocrine: no symptoms reported Gastrointestinal: abdominal pain. denies: nausea, diarrhea Genitourinary: denies: urgency, dysuria, discharge Musculoskeletal: denies: back pain, joint swelling, arthralgia Skin: denies: rash, lesions Neurological: denies: headache, weakness, paresthesias Psychiatric: denies: anxiety, depression Hematological/Lymphatic: denies: easy bleeding, easy bruising ED Past Medical Hx - Past Medical History Hx Hypertension: Yes Hx CVA: Yes (TIA) Hx Congestive Heart Failure: Yes Hx Diabetes: Yes Hx Seizures: Yes - Surgical History Hx Appendectomy: Yes Additional Surgical History: 100 lb cyst removed-2005 - Social History Smoking Status: Never Smoker - Medications Home Medications: Home Medications Medication Instructions Recorded Confirmed Last Taken Type Apixaban [Eliquis] 5 mg PO BID #60 tablet 03/16/15 01/22/20 03/03/18 Rx Apixaban [Eliquis] 5 mg PO Q12HR #60 tablet 01/16/20 01/22/20 Unknown Rx Ondansetron [Zofran ODT TAB] 4 mg PO Q8HR PRN #20 tab.rapdis 01/22/20 Unknown Rx Apixaban [Eliquis] 5 mg PO BID #60 tablet 01/31/20 Unknown Rx Aspirin 325 mg PO QDAY tablet 01/31/20 Unknown Rx Famotidine [Pepcid] 20 mg PO BID #20 tablet 01/31/20 Unknown Rx Furosemide [Lasix TAB] 20 mg PO BID #60 01/31/20 Unknown Rx Losartan/Hydrochlorothiazide 1 each PO DAILY #30 01/31/20 Unknown Rx [Losartan-Hctz 100-25 mg Tab] Metoprolol [Lopressor TAB] 25 mg PO BID #60 tablet 01/31/20 Unknown Rx Potassium Chloride [K-Dur] 10 meq PO QDAY #30 tablet 01/31/20 Unknown Rx allopurinoL [Zyloprim] 300 mg PO QDAY #30 01/31/20 Unknown Rx traMADoL [Ultram 50 MG tab] 50 mg PO Q6HR PRN #20 tablet 01/31/20 Unknown Rx ED Physical Exam - General Limitations: Physical Limitation General appearance: alert, in no apparent distress - Head Head exam: Present: atraumatic, normocephalic - Eye Eye exam: Present: normal appearance - ENT ENT exam: Present: mucous membranes moist - Neck Neck exam: Present: normal inspection - Respiratory Respiratory exam: Present: normal lung sounds bilaterally. Absent: respiratory distress - Cardiovascular Cardiovascular Exam: Present: regular rate, normal rhythm. Absent: systolic murmur, diastolic murmur, rubs, gallop - GI/Abdominal GI/Abdominal exam: Present: soft, tenderness, normal bowel sounds, hernia (anterior wall hernia). Absent: distended - Extremities Exam Extremities exam: Present: normal inspection - Back Exam Back exam: Present: normal inspection - Neurological Exam Neurological exam: Present: alert, oriented X3 - Psychiatric Psychiatric exam: Present: normal affect, normal mood - Skin Skin exam: Present: warm, dry, intact, normal color. Absent: rash ED Course Vital Signs 02/14/20 02/14/20 02/14/20 16:37 16:46 17:31 Temperature 98.3 F Pulse Rate 88 92 H 82 Respiratory 24 24 18 Rate Blood Pressure 159/79 134/75 145/90 O2 Sat by Pulse 97 98 100 Oximetry 02/14/20 02/14/20 02/14/20 18:00 18:30 19:01 Temperature Pulse Rate 73 68 72 Respiratory 16 26 H 29 H Rate Blood Pressure 140/67 143/94 140/67 O2 Sat by Pulse 98 99 95 Oximetry 02/14/20 02/14/20 02/14/20 19:15 19:31 19:45 Temperature Pulse Rate 79 78 76 Respiratory 30 H 13 11 L Rate Blood Pressure 140/67 140/67 140/67 O2 Sat by Pulse 97 97 98 Oximetry 02/14/20 02/14/20 20:01 20:15 Temperature Pulse Rate 90 89 Respiratory 15 25 H Rate Blood Pressure 143/94 143/94 O2 Sat by Pulse 99 Oximetry ED Medical Decision Making - Lab Data Result diagrams: 02/14/20 18:09 02/14/20 18:09 Lab Results 02/14/20 02/14/20 Range/Units 18:09 18:09 WBC 5.7 (4.5-11.0) K/mm3 RBC 3.34 L (3.65-5.03) M/mm3 Hgb 9.1 L (10.1-14.3) gm/dl Hct 29.3 L (30.3-42.9) % MCV 88 (79-97) fl MCH 27 L (28-32) pg MCHC 31 (30-34) % RDW 20.0 H (13.2-15.2) % Plt Count 239 (140-440) K/mm3 Lymph % (Auto) 22.5 (13.4-35.0) % [place] % (Auto) 13.3 H (0.0-7.3) % Eos % (Auto) 4.7 H (0.0-4.3) % Baso % (Auto) 0.5 (0.0-1.8) % Lymph # (Auto) 1.3 (1.2-5.4) K/mm3 [place] # (Auto) 0.8 (0.0-0.8) K/mm3 Eos # (Auto) 0.3 (0.0-0.4) K/mm3 Baso # (Auto) 0.0 (0.0-0.1) K/mm3 Seg Neutrophils % 59.0 (40.0-70.0) % Seg Neutrophils # 3.4 (1.8-7.7) K/mm3 Sodium 130 L (137-145) mmol/L Potassium 4.6 (3.6-5.0) mmol/L Chloride 95.2 L (98-107) mmol/L Carbon Dioxide 24 (22-30) mmol/L Anion Gap 15 mmol/L BUN 43 H (7-17) mg/dL Creatinine 1.5 H (0.6-1.2) mg/dL Estimated GFR 41 ml/min BUN/Creatinine Ratio 29 % Glucose 93 (65-100) mg/dL Calcium 10.6 H (8.4-10.2) mg/dL Total Bilirubin 0.30 (0.1-1.2) mg/dL AST 49 H (5-40) units/L ALT 39 (7-56) units/L Alkaline Phosphatase 139 H (35-129) units/L NT-Pro-B Natriuret Pep 2762 H (0-900) pg/mL Total Protein 7.6 (6.3-8.2) g/dL Albumin 3.4 L (3.9-5) g/dL Albumin/Globulin Ratio 0.8 % Lipase 58 (13-60) units/L - Radiology Data Radiology results: report reviewed - Medical Decision Making Patient lost IV access thus Lasix was given p.o. Critical care attestation.: If time is entered above; I have spent that time in minutes in the direct care of this critically ill patient, excluding procedure time. ED Disposition Clinical Impression: CHF (congestive heart failure) Disposition: TO HOME OR SELFCARE Is pt being admited?: No Does the pt Need Aspirin: No Condition: Stable Instructions: Heart Failure, Diagnosis Additional Instructions: return if worse Referrals: PRIMARY CAREMD [Primary Care Provider] - 3-5 Days YOLY ARDON MD [Staff Physician] - 3-5 Days
[2020-02-14 21:02] VITALS: BP 143/94
[2020-02-14] MEDS ORDERED: FUROSEMIDE 20 MG TAB ONE (21:06)
[2020-02-14] MEDS ORDERED: FUROSEMIDE 20 MG TAB PO ONE (21:08)
--- NOTE | 2020-02-14 22:12 | Cat Scan Report ---
CT ABDOMEN AND PELVIS WITHOUT CONTRAST INDICATION / CLINICAL INFORMATION: ab pain. TECHNIQUE: Axial CT images were obtained through the abdomen and pelvis without IV contrast. All CT scans at [facility] location are performed using CT dose reduction for ALARA by means of automated exposure control. COMPARISON: CT abdomen/pelvis dated 01/22/2020. FINDINGS: LOWER CHEST: Stable cardiomegaly. Small right and trace left pleural effusions. LIVER: No significant abnormality. GALLBLADDER: No significant abnormality. PANCREAS: No significant abnormality. SPLEEN: No significant abnormality. ADRENALS: No significant abnormality. KIDNEYS / URETERS: No significant abnormality. Scattered simple renal cysts are unchanged. URINARY BLADDER: No significant abnormality. REPRODUCTIVE ORGANS: Stable small calcified uterine fibroid. STOMACH / SMALL BOWEL: No significant abnormality. COLON: No significant abnormality. APPENDIX: Not definitively identified. PERITONEUM: Small volume perihepatic free fluid No free air. No fluid collection. LYMPH NODES: No significant adenopathy. AORTA / ARTERIES: No significant abnormality. IVC / VEINS: No significant abnormality. SKELETAL SYSTEM: No significant abnormality. ADDITIONAL FINDINGS: Large soft tissue mass within the left breast. IMPRESSION: 1. No acute abdominopelvic abnormality. 2. Stable small volume perihepatic free fluid. 3. Small right and trace left pleural effusions along with cardiomegaly. 4. Redemonstration of a large soft tissue mass within the left breast. 5. Chronic findings as described above. Signer Name: Gigi Pastor MD Signed: 02/14/2020 10:08 PM Workstation Name: [id number]
== END 2020-02-14 23:42 | disposition home or self-care (01) ==
LOC: ED 15:20
DX: I50.9 Heart failure, unspecified (principal); I11.0 Hypertensive heart disease with heart failure; E11.9 Type 2 diabetes mellitus without complications; R56.9 Unspecified convulsions; Z90.49 Acquired absence of other specified parts of digestive tract; Z98.890 Other specified postprocedural states; Z86.73 Personal history of transient ischemic attack (TIA), and cerebral infarction without residual deficits; Z79.899 Other long term (current) drug therapy; Z91.018 Allergy to other foods; Z88.8 Allergy status to other drugs, medicaments and biological substances
CPT/HCPCS: 36415; 71045; 74176; 80053; 83690; 83880; 85025; 96374; 99285; J1940